=== PATIENT | male | born 1960 | race Caucasian/White ===

== ENCOUNTER 2021-01-19 10:15 | Outpatient (REF) | payer OTHER, SELFPAY ==
[2021-01-19 11:02] LABS: Alanine Aminotransferase 21 U/L (0-40); Albumin Level 4.4 g/dL (3.5-5.0); Alkaline Phosphatase 100 U/L (39-117); Aspartate Amino Transferase 19 U/L (5-37); Bilirubin Direct 0.3 mg/dL (0.0-0.5); Bilirubin Total 1.1 mg/dL (0.0-1.0); Cholesterol 161 mg/dL; HDL Cholesterol 40 mg/dL; LDL Cholesterol Calculated 92 mg/dl; Total Protein 7.3 g/dL (6.5-8.0); Triglycerides 145 mg/dL
[2021-01-19 12:36] LABS: Reflex LDLD? No
== END 2021-01-19 10:16 | disposition home or self-care (01) ==
LOC: HO.LNP 10:15
PROVIDERS: Visit Provider Internal Medicine
DX: E78.00 Pure hypercholesterolemia, unspecified (principal)
CPT/HCPCS: 80061; 80076

== ENCOUNTER 2021-07-24 13:23 | Outpatient (REF) | payer OTHER, SELFPAY ==
[2021-07-24 13:28] LABS: MANUAL DIFF FLAG NO
[2021-07-24 13:41] LABS: Basophils Percent Auto 0.5 % (0-2); Eosinophils Absolute Auto 0.2 X10*3/uL (0.0-0.4); Eosinophils Percent Auto 2.3 % (0-4); Hematocrit 47.3 % (42.0-52.0); Hemoglobin 15.4 g/dl (14.0-18.0); Imm Gran Abs Auto 0.02 X10*3/uL (0.00-0.03); Imm Gran Pct Auto 0.3 % (0.0-0.4); Lymphocytes Absolute Auto 2.3 X10*3/uL (1.2-4.9); Lymphocytes Percent Auto 29.2 % (20-40); Mean Corpuscular HGB Conc 32.6 g/dl (31.0-36.0); Mean Corpuscular Hemoglobin 30.3 pg (27.0-33.0); Mean Corpuscular Volume 93.1 fL (80.0-98.0); Mean Platelet Volume 10.5 fL (9.4-12.4); Monocytes Absolute Auto 0.8 X10*3/uL (0.1-1.2); Monocytes Percent Auto 10.3 % (2-11); Neutrophils Absolute Auto 4.4 x10*3/uL (2.0-8.3); Neutrophils Percent Auto 57.4 % (45-73); Platelet Count 265 X10*3/uL (160-400); Red Blood Count 5.08 X10*6/uL (4.60-5.80); Red Cell Distribution Width 13.3 % (11.0-16.0); White Blood Count 7.7 X10*3/uL (4.8-10.8)
[2021-07-24 16:54] LABS: Alanine Aminotransferase 21 U/L (0-40); Albumin Level 4.4 g/dL (3.5-5.0); Alkaline Phosphatase 106 U/L (39-117); Anion Gap 9 (12-20); Aspartate Amino Transferase 18 U/L (5-37); Bilirubin Total 1.1 mg/dL (0.0-1.0); Blood Urea Nitrogen 16 mg/dL (9-16); Calcium 9.3 mg/dL (8.4-10.2); Carbon Dioxide 27 mmol/L (22-29); Chloride 107 mmol/L (96-108); Cholesterol 150 mg/dL; Estimated Glomerular Filt Rate > 60; Glucose Fasting 91 mg/dL (60-99); HDL Cholesterol 44 mg/dL; LDL Cholesterol Calculated 85 mg/dl; Sodium 139 mmol/L (135-145); Total Protein 7.1 g/dL (6.5-8.0); Triglycerides 106 mg/dL
[2021-07-24 18:28] LABS: Reflex LDLD? No
== END 2021-07-24 13:24 | disposition home or self-care (01) ==
LOC: HO.LNP 13:23
PROVIDERS: Visit Provider Internal Medicine
DX: Z00.00 Encounter for general adult medical examination without abnormal findings (principal); Z12.5 Encounter for screening for malignant neoplasm of prostate; R09.89 Other specified symptoms and signs involving the circulatory and respiratory systems; E78.00 Pure hypercholesterolemia, unspecified
CPT/HCPCS: 80053; 80061; 84153; 85025

== ENCOUNTER 2021-07-28 14:10 | Outpatient (REF) | payer OTHER, SELFPAY ==
[2021-07-28 14:22] LABS: Appearance Urine CLEAR; Color Urine YELLOW; Glucose Urine UA NEG (NEG); Leukocyte Esterase Urine NEG (NEG); Nitrite Urine NEG (NEG); Specific Gravity - Urine 1.025 (1.005-1.025); Urine Blood NEG (NEG); Urine Ketones NEG (NEG); Urine Protein NEG (NEG-TRACE)
== END 2021-07-28 14:11 | disposition home or self-care (01) ==
LOC: HO.LNP 14:10
PROVIDERS: Visit Provider Internal Medicine
DX: Z00.00 Encounter for general adult medical examination without abnormal findings (principal); E78.00 Pure hypercholesterolemia, unspecified
CPT/HCPCS: 81003

== ENCOUNTER 2022-01-15 10:48 | Outpatient (REF) | payer OTHER, SELFPAY ==
[2022-01-15 11:23] LABS: Alanine Aminotransferase 20 U/L (0-40); Albumin Level 4.2 g/dL (3.5-5.0); Alkaline Phosphatase 98 U/L (39-117); Aspartate Amino Transferase 18 U/L (5-37); Bilirubin Direct 0.5 mg/dL (0.0-0.5); Bilirubin Total 1.1 mg/dL (0.0-1.0); Cholesterol 145 mg/dL; HDL Cholesterol 41 mg/dL; LDL Cholesterol Calculated 83 mg/dl; Triglycerides 105 mg/dL
[2022-01-15 12:40] LABS: Reflex LDLD? No
== END 2022-01-15 10:49 | disposition home or self-care (01) ==
LOC: HO.LNP 10:48
PROVIDERS: Visit Provider Internal Medicine
DX: E78.00 Pure hypercholesterolemia, unspecified (principal)
CPT/HCPCS: 80061; 80076

== ENCOUNTER 2022-07-29 10:38 | Outpatient (REF) | payer OTHER, SELFPAY ==
[2022-07-29 10:42] LABS: MANUAL DIFF FLAG NO
[2022-07-29 11:06] LABS: Basophils Percent Auto 0.5 % (0-2); Eosinophils Absolute Auto 0.2 X10*3/uL (0.0-0.4); Eosinophils Percent Auto 3.2 % (0-4); Hematocrit 50.8 % (42.0-52.0); Hemoglobin 16.4 g/dl (14.0-18.0); Imm Gran Abs Auto 0.03 X10*3/uL (0.00-0.03); Imm Gran Pct Auto 0.4 % (0.0-0.4); Lymphocytes Absolute Auto 2.4 X10*3/uL (1.2-4.9); Mean Corpuscular HGB Conc 32.3 g/dl (31.0-36.0); Mean Corpuscular Hemoglobin 30.1 pg (27.0-33.0); Mean Corpuscular Volume 93.2 fL (80.0-98.0); Mean Platelet Volume 10.1 fL (9.4-12.4); Monocytes Absolute Auto 0.7 X10*3/uL (0.1-1.2); Monocytes Percent Auto 9.4 % (2-11); Neutrophils Percent Auto 54.5 % (45-73); Platelet Count 240 X10*3/uL (160-400); Red Blood Count 5.45 X10*6/uL (4.60-5.80); Red Cell Distribution Width 13.4 % (11.0-16.0); White Blood Count 7.4 X10*3/uL (4.8-10.8)
[2022-07-29 11:14] LABS: Appearance Urine Clear; Color Urine Yellow; Glucose Urine UA Negative (Negative); Leukocyte Esterase Urine Negative (Negative); Nitrite Urine Negative (Negative); Urine Blood Negative (Negative); Urine Ketones Negative (Negative); Urine Protein Negative (Neg-Trace)
[2022-07-29 11:20] LABS: Bacteria Urine None Seen (None Seen); Hyaline Casts Urine 0-2 /LPF (0-2); RBC Urine 0-2 /HPF (0-2); Squamous Epithelial Cell Urine 0-2 /HPF (0-2); WBC Urine 0-5 /HPF (0-5)
[2022-07-29 11:23] LABS: Alanine Aminotransferase 22 U/L (0-40); Albumin Level 4.5 g/dL (3.5-5.0); Alkaline Phosphatase 103 U/L (39-117); Anion Gap 14 (12-20); Aspartate Amino Transferase 19 U/L (5-37); Bilirubin Total 0.9 mg/dL (0.0-1.0); Blood Urea Nitrogen 20 mg/dL (9-16); Calcium 9.5 mg/dL (8.4-10.2); Carbon Dioxide 26 mmol/L (22-29); Chloride 104 mmol/L (96-108); Cholesterol 190 mg/dL; Estimated Glomerular Filt Rate > 60; Glucose Random 98 mg/dL (60-115); HDL Cholesterol 45 mg/dL; LDL Cholesterol Calculated 103 mg/dl; Potassium 4.6 mmol/L (3.3-5.1); Sodium 139 mmol/L (135-145); Total Protein 7.6 g/dL (6.5-8.0); Triglycerides 210 mg/dL
[2022-07-29 11:33] LABS: PSA,Total (Free>4and<10) 0.69 ng/mL (0.00-4.00)
== END 2022-07-29 10:39 | disposition home or self-care (01) ==
LOC: HO.LNP 10:38
PROVIDERS: Visit Provider Internal Medicine
DX: Z00.00 Encounter for general adult medical examination without abnormal findings (principal); Z12.5 Encounter for screening for malignant neoplasm of prostate; E78.00 Pure hypercholesterolemia, unspecified
CPT/HCPCS: 80053; 80061; 81001; 84153; 85025

== ENCOUNTER 2023-01-31 11:05 | Outpatient (REF) | payer OTHER, SELFPAY ==
[2023-01-31 12:10] LABS: Alanine Aminotransferase 25 U/L (0-40); Albumin Level 4.3 g/dL (3.5-5.0); Alkaline Phosphatase 93 U/L (39-117); Aspartate Amino Transferase 20 U/L (5-37); Bilirubin Direct 0.4 mg/dL (0.0-0.5); Bilirubin Total 1.4 mg/dL (0.0-1.0); Cholesterol 153 mg/dL; HDL Cholesterol 42 mg/dL; LDL Cholesterol Calculated 88 mg/dl; Total Protein 6.9 g/dL (6.5-8.0); Triglycerides 119 mg/dL
[2023-01-31 13:35] LABS: Reflex LDLD? No
== END 2023-01-31 11:06 | disposition home or self-care (01) ==
LOC: HO.LNP 11:05
PROVIDERS: Visit Provider Internal Medicine
DX: E78.00 Pure hypercholesterolemia, unspecified (principal)
CPT/HCPCS: 80061; 80076

== ENCOUNTER 2023-08-02 10:43 | Outpatient (REF) | payer OTHER, SELFPAY ==
[2023-08-02 10:47] LABS: MANUAL DIFF FLAG NO
[2023-08-02 11:11] LABS: Appearance Urine Clear; Color Urine Yellow; Glucose Urine UA Negative (Negative); Leukocyte Esterase Urine Negative (Negative); Nitrite Urine Negative (Negative); Urine Blood Negative (Negative); Urine Ketones Negative (Negative); Urine Protein Negative (Neg-Trace)
[2023-08-02 11:12] LABS: Basophils Absolute Auto 0.1 X10*3/uL (0.0-0.2); Basophils Percent Auto 0.7 % (0-2); Eosinophils Absolute Auto 0.3 X10*3/uL (0.0-0.4); Eosinophils Percent Auto 3.8 % (0-4); Hematocrit 48.6 % (42.0-52.0); Hemoglobin 15.8 g/dl (14.0-18.0); Imm Gran Abs Auto 0.03 X10*3/uL (0.00-0.03); Imm Gran Pct Auto 0.4 % (0.0-0.4); Lymphocytes Absolute Auto 2.2 X10*3/uL (1.2-4.9); Lymphocytes Percent Auto 30.5 % (20-40); Mean Corpuscular HGB Conc 32.5 g/dl (31.0-36.0); Mean Corpuscular Hemoglobin 30.3 pg (27.0-33.0); Mean Corpuscular Volume 93.3 fL (80.0-98.0); Mean Platelet Volume 10.3 fL (9.4-12.4); Monocytes Absolute Auto 0.8 X10*3/uL (0.1-1.2); Monocytes Percent Auto 11.7 % (2-11); Neutrophils Absolute Auto 3.8 x10*3/uL (2.0-8.3); Neutrophils Percent Auto 52.9 % (45-73); Platelet Count 230 X10*3/uL (160-400); Red Blood Count 5.21 X10*6/uL (4.60-5.80); Red Cell Distribution Width 13.5 % (11.0-16.0); White Blood Count 7.1 X10*3/uL (4.8-10.8)
[2023-08-02 11:18] LABS: Bacteria Urine None Seen (None Seen); Hyaline Casts Urine 0-2 /LPF (0-2); RBC Urine 0-2 /HPF (0-2); Squamous Epithelial Cell Urine 0-2 /HPF (0-2); WBC Urine 0-5 /HPF (0-5)
[2023-08-02 11:28] LABS: Alanine Aminotransferase 23 U/L (0-40); Albumin Level 4.3 g/dL (3.5-5.0); Alkaline Phosphatase 85 U/L (39-117); Anion Gap 11 (12-20); Aspartate Amino Transferase 22 U/L (5-37); Bilirubin Total 1.2 mg/dL (0.0-1.0); Blood Urea Nitrogen 22 mg/dL (9-16); Calcium 9.6 mg/dL (8.4-10.2); Carbon Dioxide 28 mmol/L (22-29); Chloride 104 mmol/L (96-108); Cholesterol 160 mg/dL (<200); Estimated Glomerular Filt Rate > 60; Glucose Random 96 mg/dL (60-115); HDL Cholesterol 41 mg/dL (>40); LDL Cholesterol Calculated 95 mg/dL (<100); Sodium 139 mmol/L (135-145); Total Protein 7.4 g/dL (6.5-8.0); Triglycerides 122 mg/dL (<150)
[2023-08-02 11:41] LABS: PSA,Total (Free>4and<10) 1.36 ng/mL (0.00-4.00)
== END 2023-08-02 10:44 | disposition home or self-care (01) ==
LOC: HO.LNP 10:43
PROVIDERS: Visit Provider Internal Medicine
DX: Z00.00 Encounter for general adult medical examination without abnormal findings (principal); Z12.5 Encounter for screening for malignant neoplasm of prostate; E78.00 Pure hypercholesterolemia, unspecified
CPT/HCPCS: 80053; 80061; 81001; 84153; 85025

== ENCOUNTER 2024-08-02 07:30 | Outpatient (REF) | payer OTHER, SELFPAY ==
[2024-08-02 07:42] LABS: MANUAL DIFF FLAG NO
[2024-08-02 08:08] LABS: Appearance Urine Clear; Color Urine Yellow; Glucose Urine UA Negative (Negative); Leukocyte Esterase Urine Negative (Negative); Nitrite Urine Negative (Negative); PH 6.5 (5.0-9.0); Specific Gravity - Urine <= 1.005 (1.005-1.025); Urine Blood Negative (Negative); Urine Ketones Negative (Negative); Urine Protein Negative (Neg-Trace)
[2024-08-02 08:15] LABS: Bacteria Urine None Seen (None Seen); Hyaline Casts Urine 0-2 /LPF (0-2); RBC Urine 0-2 /HPF (0-2); Squamous Epithelial Cell Urine 0-2 /HPF (0-2); WBC Urine 0-5 /HPF (0-5)
[2024-08-02 08:20] LABS: Basophils Absolute Auto 0.1 X10*3/uL (0.0-0.2); Basophils Percent Auto 0.7 % (0-2); Eosinophils Absolute Auto 0.3 X10*3/uL (0.0-0.4); Eosinophils Percent Auto 3.9 % (0-4); Hematocrit 47.9 % (42.0-52.0); Hemoglobin 16.1 g/dl (14.0-18.0); Imm Gran Abs Auto 0.02 X10*3/uL (0.00-0.03); Imm Gran Pct Auto 0.3 % (0.0-0.4); Lymphocytes Absolute Auto 1.9 X10*3/uL (1.2-4.9); Lymphocytes Percent Auto 26.6 % (20-40); Mean Corpuscular HGB Conc 33.6 g/dl (31.0-36.0); Mean Corpuscular Hemoglobin 30.5 pg (27.0-33.0); Mean Corpuscular Volume 90.7 fL (80.0-98.0); Mean Platelet Volume 10.3 fL (9.4-12.4); Monocytes Absolute Auto 0.8 X10*3/uL (0.1-1.2); Monocytes Percent Auto 11.1 % (2-11); Neutrophils Absolute Auto 4.1 x10*3/uL (2.0-8.3); Neutrophils Percent Auto 57.4 % (45-73); Platelet Count 208 X10*3/uL (160-400); Red Blood Count 5.28 X10*6/uL (4.60-5.80); Red Cell Distribution Width 13.5 % (11.0-16.0); White Blood Count 7.2 X10*3/uL (4.8-10.8)
[2024-08-02 08:44] LABS: Alanine Aminotransferase 30 U/L (0-40); Albumin Level 4.2 g/dL (3.5-5.0); Alkaline Phosphatase 97 U/L (39-117); Anion Gap 12 (12-20); Aspartate Amino Transferase 30 U/L (5-37); Bilirubin Total 1.1 mg/dL (0.0-1.0); Blood Urea Nitrogen 19 mg/dL (9-16); Calcium 9.9 mg/dL (8.4-10.2); Carbon Dioxide 24 mmol/L (22-29); Chloride 106 mmol/L (96-108); Cholesterol 146 mg/dL (<200); Estimated Glomerular Filt Rate > 60; Glucose Fasting 102 mg/dL (60-99); HDL Cholesterol 39 mg/dL (>40); LDL Cholesterol Calculated 77 mg/dL (<100); Potassium 3.8 mmol/L (3.3-5.1); Sodium 138 mmol/L (135-145); Total Protein 7.2 g/dL (6.5-8.0); Triglycerides 152 mg/dL (<150)
[2024-08-02 09:26] LABS: PSA,Total (Free>4and<10) 0.91 ng/mL (0.00-4.00)
== END 2024-08-02 07:31 | disposition home or self-care (01) ==
LOC: HO.LAB 07:30
PROVIDERS: PCP Internal Medicine; Visit Provider Internal Medicine
DX: Z00.00 Encounter for general adult medical examination without abnormal findings (principal); E78.00 Pure hypercholesterolemia, unspecified
CPT/HCPCS: 36415; 80053; 80061; 81001; 84153; 85025

== ENCOUNTER 2025-02-11 10:14 | Outpatient (REF) | payer OTHER, SELFPAY ==
[2025-02-11 11:02] LABS: Alanine Aminotransferase 32 U/L (0-40); Albumin Level 4.3 g/dL (3.5-5.0); Alkaline Phosphatase 103 U/L (39-117); Aspartate Amino Transferase 32 U/L (5-37); Bilirubin Direct 0.2 mg/dL (0.0-0.5); Bilirubin Total 0.7 mg/dL (0.0-1.0); Cholesterol 149 mg/dL (<200); HDL Cholesterol 38 mg/dL (>40); LDL Cholesterol Calculated 79 mg/dL (<100); Total Protein 7.2 g/dL (6.5-8.0); Triglycerides 162 mg/dL (<150)
--- OUTSIDE RECORDS SUMMARY | 2025-02-11 11:09 | XMS_ITS ---
Author Organization Carlitos Robledo MD Address [address] [place] [phone] Care Team Providers Care Bread Jockey Name Role Phone Carlitos Robledo Primary Care Provider [phone] REASON FOR VISIT fasty lipids Encounters Encounter Location Date Provider Diagnosis Carlitos Robledo MD [address] [place] [address] Drive [address] [place] [phone] 02/11/2025 Carlitos Robledo Pure hypercholestero lemia E78.00 Assessments Encounter Date Diagnosis (ICD Code) Assessment Notes Treatment Notes Treatment Clinical Notes Section Notes 02/11/2025 Pure hypercholesterolemia (ICD-10 - E78.00) Plan Of Treatment Pending Test Test Name Order Date Liver Panel 02/11/2025 Lipid Panel with Reflex 02/11/2025 Next Appt Details Provider Name:Carlitos tinsley, 02/18/2025 09:15:00 AM, [address] [place] [address], [address], [phone], Provider Name:Carlitos tinsley, 08/15/2025 07:00:00 AM, [address] [place] [address], [address], [phone], Provider Name:Carlitos tinsley, 08/22/2025 11:00:00 AM, [address] [place] [address], [address], [phone], Progress Notes * MARIA DE JESUS NOVOADOB:1960 ( 64 yo M)Acc No.[id number]:02/11/2025 Progress Note Patient:?MARIA DE JESUS NOVOA Provider:?Carlitos Robledo MD :1960???Age:64 Y???Sex:Male Feliciano e:02/11/2025 Address:[address], [place], [phone] Subjective: * Chief Complaints: * ???1. Fasty lipids. * Medical History:? Objective: * Vitals:? Assessment: * Assessment: 1.?Pure hypercholesterolemia - E78.00 (Primary)??? Plan: * Treatment: * Procedure Codes:?38014 VENIP UNCT, ROUTINE* * * The named appointment provid er may or may not be the originator of this progress note, and it is not deemed complete until electronically signed by the appointment provider. Sign off status: Pending * Provider:?Carlitos Robledo MD Date:?0 02/11/2025 Generated for Anabelle pandya/Rosalio/Bereitting on:?02/11/2025 11:08 AM EDT
[2025-02-11 11:25] LABS: Reflex LDLD? No
== END 2025-02-11 10:15 | disposition home or self-care (01) ==
LOC: HO.LNP 10:14
PROVIDERS: Visit Provider Internal Medicine
DX: E78.00 Pure hypercholesterolemia, unspecified (principal)
CPT/HCPCS: 80061; 80076

== ENCOUNTER 2025-04-04 12:05 | Day surgery (SDC) | payer OTHER, SELFPAY ==
--- OUTSIDE RECORDS SUMMARY | 2025-02-18 05:15 | XMS_ITS ---
Author Organization Carlitos Robledo MD Address [address] [place], [place] [id number] Care Team Providers Care Clinical Nurse Occupational Medicine Name Role Phone Carlitos Robledo Primary Care Provider [phone] Allergies No Known Allergies Reason For Referral [...] Location Date Provider Diagnosis Carlitos Robledo MD [address] [place] [address] [place] [phone] 02/18/2025 Carlitos Glennangie Tick bite W57.XXXA ; Pure hypercholesterolemia E78.00 [...] Nath Next Appt Details Provider Name:Carlitos tinsley, 08/15/2025 07:00:00 AM, [address] [place] [address], [address], [phone], Provider Name:Carlitos tinsley, 08/22/2025 11:00:00 AM, [address] [place] [address], Suite [facility], [place], [place], [phone], Progress Notes * MARIA DE JESUS NOVOADOB:1960 ( 64 yo M)Acc No.[id number]:02/18/2025 Progress Notes Patient: MARIA DE JESUS THOMPSON Provider: Radha Robledo MD :1960 A ge:64 Y S ex:Male Date:02/18/2025 Address:[address], [place], [id number] Subjective: * Chief Complaints: * 6 monthPatient [...] MD Date: 0 02/18/2025 Generated for Anabelle pandya/Rosalio/eTransmitting on: 04/04/2025 12:40 PM EDT History and Physical Notes * HPI (History [...] Provider Referred Provider Not es 02/18/2025 Carlitos Robledo Robert needs urge nt Colonoscopy
[2025-04-02 09:58] VITALS: BMI 40.3
[2025-04-04 12:22] VITALS: BMI 41.3
[2025-04-04 12:33] VITALS: BP 149/77; PULSE 77; RESP 16; TEMP 36.5; O2SAT 95
--- OUTSIDE RECORDS SUMMARY | 2025-04-04 12:40 | XMS_ITS | Patient Health Record ---
Author Organization [facility] Address [address] [place] [address] Care Team Providers Care Straightener And Aligner Name Role Phone Carlitos Robledo MD Primary Care Provider Rohan Rosenberg Unavailable [phone] Allergies No Known Allergies Reason For Referral No Information Medications Medication SIG (Take, Route, Frequency, Duration) Notes Start Date End Date Status Atorvastatin Calcium 40 MG 1 tablet Oral ly Once a day Active Immunizations Vaccine Route Administration Date Status Comme nts Influenza Unknown 07/03/2024 Administered Problems Problem Type SNOMED Code ICD Code Onset Dates Problem Status W/U Status Risk Notes Problem Colon cancer screening (V76.51) Active confirmed Vital Signs Temperature 98.4 degrees Fahrenheit 02/20/2025 Blood pressure diastolic 01 mm Hg 02/20/2025 Height 69.5 in 02/20/2025 Blood pressure systolic 001 mm Hg 02/20/2025 Weight 277.1 lbs 02/20/2025 BMI 40.33 kg/m2 02/20/2025 Procedures Procedure Date Ordered Date Performed Result Body Sit e COLONOSCOPY 02/20/2025 N/A Encounters Encounter Location Date Provider Diagnosis [facility] [address] [place] [id number] 02/20/2025 Rohan Ambriz Heme + stool R19.5 Assessments Encounter Date Diagnosis (ICD Code) Assessment Notes Treatment Notes Treatment Clinical Notes Section Notes 02/20/2025 Heme + stool (ICD-10 - R19.5) Overall, Og appears quite well from a GI standpoint and is not having any new or worrisome GI complaints. However, given the reported heme positive stool and his last colonoscopy being in 2017, I did recommend a colonoscopy for further evaluation to rule out polyps or any other lesions. We did review the rationale for this in regard to colorectal cancer prevention and/or early detection. Full consent has been obtained from him for this, including risks of bleeding and perforation. The procedure will be done with monitored anesthesia care. I advised him that as long as he is not having any significant upper GI complaints then I do not think an upper endoscopy is required despite his family history in his brother. Og was comfortable with this plan. Thank you again for allowing me to participate in Og's care. I shall continue to keep you advised of his progress. Plan Of Treatment Pending Test Test Name Order Date COLONOSCOPY 02/20/2025 Future Test Test Name Order Date COLONOSCOPY 10/13/2012 Next Appt Details Provider Name:Rohan Ambriz , 04/04/2025 01:00:00 PM, [address] [place] [address] , [place], [place], [phone], Insurance Providers Payer Name Payer Address Payer Phone Subscriber Number Group Number Insured Name Patient Relationship to Insured Coverage Start Date Coverage End Date [employer] [address] [place] [address] [id number] OG NOVOA Self - patient is the insured Medical (General) History Medical History History ICD Code Denies NV,DM,CVA,Lung disease,renal dise ase Hyperlipidemia Negative screening colonoscopy with i n 2012 Negative colonoscopy at [facility] in 2017. This was done for the evaluation of an abnormal CT scan of the colon.
[2025-04-04] MEDS: Lactated Ringers 1,000 ML 100 ML IVCONT (12:41)
--- NOTE | 2025-04-04 13:00 | HO.ANESPROP2 ---
[facility] Past Medical History Medical History Sleep apnea treated with continuous positive airway pressure (CPAP) Hyperlipidemia Functional capacity: independent ambulation Family History Family history of problems with anesthesia: No Surgical History Surgical History H/O colonoscopy History of Problems with Anesthesia: No Social History Social History Patient Tobacco Use Status: Never used Tobacco Use of substances other than those prescribed or required for medical reasons: No Are you DNR?: No Advance Directives: No Advance Directives Information Provided: Yes Poor oral hygiene: No Meds Allergies Allergy/AdvReac Type Severity Reaction Status Date / Time No Known Allergies Allergy Verified 04/04/25 12:21 Active Medications: Current Medications Lactated Ringer's (Lr) 1,000 mls @ 100 mls/hr IVCONT .Q10H RAINER Last Admin: 04/04/25 12:41 Dose: 100 mls/hr Sodium Biphosphate/Sodium Phosphate (Sodium Phosphate,[place]-Dibasic 133 Ml Enema) 133 ml FL ONCE PRN PRN Reason: Poor Colonoscopy Prep Results Home Medications ?Medication ?Instructions ?Recorded ?Confirmed ?Last Taken ?Type atorvastatin 40 mg tablet 40 mg PO DAILY 04/02/25 04/02/25 Unknown History Exam Height,Weight and Vital Signs: Height 5 ft 9.5 in Weight 128.6 kg Last Vital Signs Temp 97.7 F 04/04/25 12:33 Pulse 77 04/04/25 12:33 Resp 16 04/04/25 12:33 BP 149/77 H 04/04/25 12:33 Pulse Ox 95 04/04/25 12:33 O2 Del Method Room Air 04/04/25 12:33 Airway Mallampati Class: III TM Dist: >3cm Neck ROM: Full Heart: RRR Lungs: CTS Assessment and Plan Assessment Anesthesia Assessment: Anesthesia Plan Discussed and Chart Reviewed Final Anesthetic Review Family History of Problems with Anesthesia: No History of Problems with Anesthesia: No NPO: Yes Final Preanesthetic Review: Meds/Allgs Chart Reviewed, Consent Obtained/Reviewed and Anes Risks/Benef Reviewed Procedure Risk: Low Anesthetic Plan Anesthetic Plan: MAC: Disposition: Standard PACU
--- NOTE | 2025-04-04 14:29 | P.BOP_ITS ---
Brief Operative Note Date of Service: 04/04/25 Pre-op diagnosis: Screening Post-op diagnosis: other (Colon polyp) Procedure: Colonoscopy to the cecum with cold snare polypectomy x 1 Surgeon: Rohan Ambriz MD Anesthesia: MAC Was an Five Roll Refiner Batch Mixer used for this Procedure?: No Estimated blood loss (mL): 2.0 Pathology: other (A. Cecal polyp) Condition: stable Disposition: PACU
[2025-04-04 14:35] VITALS: BP 112/68; PULSE 69; RESP 14; TEMP 36.3; O2SAT 96
[2025-04-04 14:40] VITALS: BP 115/69; PULSE 72; RESP 14; O2SAT 96
[2025-04-04 14:45] VITALS: BP 116/79; PULSE 72; RESP 16; O2SAT 93
[2025-04-04 14:50] VITALS: BP 111/65; PULSE 70; RESP 16; O2SAT 94
[2025-04-04 15:01] VITALS: BP 129/76; PULSE 73; RESP 20; TEMP 36.6; O2SAT 94
--- NOTE | 2025-04-04 15:29 | HO.POSTANES ---
Post Anesthesia Evaluation Post Anesthesia Evaluation Date of Service: 04/04/25 Vital Signs: Vital Signs Temp Pulse Resp BP Pulse Ox O2 Del Method O2 Flow Rate 04/04/25 15:01 97.8 F 73 20 129/76 94 Room Air 04/04/25 14:50 70 16 111/65 94 Room Air 04/04/25 14:45 72 16 116/79 93 Room Air 04/04/25 14:40 72 14 115/69 96 Room Air 04/04/25 14:35 97.4 F 69 14 112/68 96 Simple Mask 6 04/04/25 12:33 97.7 F 77 16 149/77 H 95 Room Air Anesthesia: Monitored Mental Status: Awake Pain Control: Satisfactory Nausea/Vomiting: None Hydration: Adequate Anesthesia-Related Issues: No Anes. Related Issues
--- NOTE | 2025-04-05 00:59 | OP_ITS ---
DATE OF SERVICE: 04/04/2025 SURGEON: Rohan Ambriz MD INDICATIONS: Patient presents for evaluation of heme-positive stool. Full consent obtained from him for this, including risks of bleeding and perforation. PREOPERATIVE DIAGNOSIS: Heme-positive stool. POSTOPERATIVE DIAGNOSIS: PROCEDURE PERFORMED: Colonoscopy to the cecum with cold snare polypectomy x1. ESTIMATED BLOOD LOSS: COMPLICATIONS: ANESTHESIA: Monitored anesthesia care. ASSISTANTS: SPECIMENS: POSTOPERATIVE DIAGNOSES: Heme-positive stool, small colon polyp, diverticulosis, and internal hemorrhoids. DESCRIPTION OF PROCEDURE: The patient was placed in the left lateral decubitus position. The digital rectal exam revealed some external hemorrhoids. The Olympus video pediatric colonoscope was entered into the rectum and advanced to the cecum with the assistance of abdominal wall pressure. Once in the cecum, I did identify normal-appearing cecal pouch other than an approximately 8 mm flat, but raised polyp, which was removed with cold snare polypectomy. The polypectomy site appeared clean, without any sign of residual polyp nor significant bleeding. The polyp was recovered by suction. The remainder of the cecum appeared completely normal including the appendiceal orifice. The ileocecal valve appeared normal. The scope was slowly withdrawn assessing all mucosal surfaces carefully. Preparation was excellent. I did not visualize any sign of other polyps, colitis, nor angiodysplasia. There was moderate amount of sigmoid diverticulosis. In the rectum, scope was retroflexed visualizing internal hemorrhoids, but no other pathology. The rectal mucosa appeared normal. Scope was straightened and withdrawn from the patient. He was returned to the recovery area in stable condition. IMPRESSION: 1. Colon polyp. 2. Diverticulosis. 3. Internal hemorrhoids. PLAN: The results of the pathology will be checked. If this is a tubular adenoma or a serrated polyp, I would recommend a repeat colonoscopy in 5 years. If it is only hyperplastic, I would recommend a followup coloscopy in 10 years for further screening given no reported family history of colorectal cancer. He was advised not to use any aspirin or NSAIDs for 1 week. MD GHANSHYAM Joyce/JENNIFER / [id number] MTDD
== END 2025-04-04 15:13 | disposition home or self-care (01) ==
PROVIDERS: PCP Internal Medicine; Visit Provider Internal Medicine
PROC: 0DJD8ZZ Inspection of Lower Intestinal Tract, Via Natural or Artificial Opening Endoscopic (ICD-10-PCS; CPT 45378; principal; 2025-04-04 13:00)
DX: R19.5 Other fecal abnormalities (principal); D12.0 Benign neoplasm of cecum; K57.30 Diverticulosis of large intestine without perforation or abscess without bleeding; K64.8 Other hemorrhoids; Z80.0 Family history of malignant neoplasm of digestive organs; E78.5 Hyperlipidemia, unspecified; Z79.899 Other long term (current) drug therapy
CPT/HCPCS: 45385; 88305; J2003; J2704

== ENCOUNTER 2025-06-10 15:46 | Outpatient (REF) | payer OTHER, SELFPAY ==
[2025-06-15 19:03] LABS: Testosterone, Free 32.1 pg/mL (35.0-155.0)
== END 2025-06-10 15:47 | disposition home or self-care (01) ==
LOC: HO.LNP 15:46
PROVIDERS: Visit Provider Internal Medicine
DX: Z23 Encounter for immunization (principal); E66.9 Obesity, unspecified; E78.00 Pure hypercholesterolemia, unspecified
CPT/HCPCS: 84402; 84403; 84443

== ENCOUNTER 2025-08-15 11:16 | Outpatient (REF) | payer OTHER, SELFPAY ==
[2025-08-15 11:41] LABS: Appearance Urine Clear; Glucose Urine UA Negative (Negative); Hematocrit 48.6 % (42.0-52.0); Hemoglobin 16.0 g/dl (14.0-18.0); Imm Gran Abs Auto 0.02 X10*3/uL (0.00-0.03); Imm Gran Pct Auto 0.3 % (0.0-0.4); Lymphocytes Absolute Auto 1.9 X10*3/uL (1.2-4.9); MANUAL DIFF FLAG NO; Mean Corpuscular HGB Conc 32.9 g/dl (31.0-36.0); Mean Corpuscular Hemoglobin 30.7 pg (27.0-33.0); Mean Corpuscular Volume 93.3 fL (80.0-98.0); NRBC Abs Auto 0.000 X10*3/uL (0.0-0.012); NRBC Pct Auto 0.0 /100WBC (0.0-0.2); PH 6.5 (5.0-9.0); Platelet Count 232 X10*3/uL (160-400); Red Blood Count 5.21 X10*6/uL (4.60-5.80); Specific Gravity - Urine 1.020 (1.005-1.025); White Blood Count 7.5 X10*3/uL (4.8-10.8)
[2025-08-15 17:20] LABS: Alanine Aminotransferase 27 U/L (0-40); Albumin Level 4.5 g/dL (3.5-5.0); Alkaline Phosphatase 109 U/L (39-117); Anion Gap 14 (12-20); Aspartate Amino Transferase 32 U/L (5-37); Blood Urea Nitrogen 22 mg/dL (9-16); Calcium 9.4 mg/dL (8.4-10.2); Carbon Dioxide 24 mmol/L (22-29); Chloride 108 mmol/L (96-108); Cholesterol 149 mg/dL (<200); Estimated Glomerular Filt Rate > 60; HDL Cholesterol 45 mg/dL (>40); Potassium 4.4 mmol/L (3.3-5.1); Sodium 142 mmol/L (135-145); Total Protein 7.3 g/dL (6.5-8.0); Triglycerides 125 mg/dL (<150)
[2025-08-15 17:40] LABS: PSA,Total (Free>4and<10) 2.08 ng/mL (0.00-4.00)
[2025-08-21 20:38] LABS: Testosterone, Free 52.9 pg/mL (35.0-155.0)
== END 2025-08-15 11:17 | disposition home or self-care (01) ==
LOC: HO.LNP 11:16
PROVIDERS: Visit Provider Internal Medicine
DX: Z00.00 Encounter for general adult medical examination without abnormal findings (principal); E78.00 Pure hypercholesterolemia, unspecified; Z12.5 Encounter for screening for malignant neoplasm of prostate
CPT/HCPCS: 80053; 80061; 81001; 84153; 84402; 84403; 85025

== ENCOUNTER 2025-09-09 15:39 | Outpatient (AMB) | payer OTHER, SELFPAY ==
--- OUTSIDE RECORDS SUMMARY | 2024-08-02 02:30 | XMS_ITS ---
Author Organization Carlitos Robledo MD Address [address] [place], [place] [id number] Care Team Providers Care Morgue Attendant Name Role Phone Carlitos Robledo Primary Care Provider [phone] Results Component Value Reference Range Notes Complete Blood Count Auto Di ff Reviewed date:08/02/2024 05:21:38 PM Interpretation: Performing Lab:[facility], [address] [place] [phone] Notes/Report: White Blood Count 7.2 4.8-10.8 X10*3/uL Red Blood Count 5.28 4.60-5.80 X10*6/uL Hemoglobin 16.1 14.0-18.0 g/dl Hematocrit 47.9 42.0-52.0 % Mean Corpuscular Volume 90.7 80.0-98.0 fL Mean Corpuscular Hemoglobin 30.5 27.0-33.0 pg Mean Corpuscular HGB Conc 33.6 31.0-36.0 g/dl Red Cell Distribution Width 13.5 11.0-16.0 % Platelet Count 208 160-400 X10*3/uL Mean Platelet Volume 10.3 9.4-12.4 fL Neutrophils Percent Auto 57.4 45-73 % Imm Gran Pct Auto 0.3 0.0-0.4 % Lymphocytes Percent Auto 26.6 20-40 % Monocytes Percent Auto 11.1 2-11 % Eosinophils Percent Auto 3.9 0-4 % Basophils Percent Auto 0.7 0-2 % NRBC Pct Auto 0.0 0.0-0.2 /100WBC Neutrophils Absolute Auto 4.1 2.0-8.3 x10*3/u L Imm Gran Abs Auto 0.02 0.00-0.03 X10*3/uL Lymphocytes Absolute Auto 1.9 1.2-4.9 X10*3/u L Monocytes Absolute Auto 0.8 0.1-1.2 X10*3/uL Eosinophils Absolute Auto 0.3 0.0-0.4 X10*3/u L Basophils Absolute Auto 0.1 0.0-0.2 X10*3/uL NRBC Abs Auto 0.000 0.0-0.012 X10*3/uL Comprehensive [place]. Panel Fa st Reviewed date:08/02/2024 05:21:20 PM Interpretation: Performing Lab:[address] [id number] Notes/Report: Sodium 138 135-145 mmol/L Potassium 3.8 3.3-5.1 mmol/L Chloride 106 96-108 mmol/L Carbon Dioxide 24 22-29 mmol/L Anion Gap 12 12-20 Blood Urea Nitrogen 19 9-16 mg/dL Creatinine 0.94 0.5-1.4 mg/dL Estimated Glomerular Filt Rate > 60 Chronic Kidney Disease: Estimated GFR < 60 mL/min/1.73m2 Severe Kidney Disease: Estimated GFR < 15 mL/min/1.73m2 Glucose Fasting 102 60-99 mg/dL A fasting glucose from 100-125 mg/dl is considered impaired (pre-diabetes). Calcium 9.9 8.4-10.2 mg/dL Bilirubin Total 1.1 0.0-1.0 mg/dL Aspartate Amino Transferase 30 5-37 U/L Alanine Aminotransferase 30 0-40 U/L Total Protein 7.2 6.5-8.0 g/dL Albumin Level 4.2 3.5-5.0 g/dL Alkaline Phosphatase 97 39-117 U/L Lipid Panel Reviewed date:08/02/2024 05:18:27 PM Interpretation: Performing Lab:[address] [phone] Notes/Report: Triglycerides 152 <150 mg/dL Desirable Triglyceride: less than 150 mg/dL Borderline High Triglyceride 150-199 mg/dL High Triglyceride: 200-499 mg/dL Very High Triglyceride: greater than or equal to 5OO mg/dL Cholesterol 146 <200 mg/dL Desirable Cholesterol: less than 200 mg/dL Borderline High Cholesterol: 200-239 mg/dL High Cholesterol: greater than 239 mg/dL LDL Cholesterol Calculated 77 <100 mg/dL Desirable LDL: less than 100 mg/dL Near Optimal/Above Optimal LDL: 110-129 mg/dL Borderline High LDL: 130-159 mg/dL High LDL: 160-189 mg/dL Very High LDL: greater than or equal to 190 mg/dL HDL Cholesterol 39 >40 mg/dL Desirable HDL: greater than 40 mg/dL Note: This HDL assay may give artificially low results in patients with liver disease. PSA,Total (Free>4and<10) Reviewed date:08/02/2024 12:53:21 PM Interpretation: Performing Lab:[address] [id number] Notes/Report: PSA,Total (Free>4and<10) 0.91 0.00-4.00 ng/mL A Free PSA was not performed: The percentage of Free PSA can be used to enhance the differentiation of prostate cancer from benign prostatic disease in subjects whose PSA levels are between 4.0 and 10.0 ng/mL. For subjects whose PSA levels are below 4.0 or above 10.0 ng/mL, the risk of prostate cancer is determined on the basis of the PSA alone. Therefore the % Free PSA is recommended only for those subjects whose PSA levels are between 4.0 and 10.0 ng/mL. PSA methodology: [place] Alinity i Chemiluminescent Microparticle Immunoassay (CMIA) UA ClnCatch+Micro w/rflx Cul t Reviewed date:08/02/2024 05:23:08 PM Interpretation: Performing Lab:[address] [phone] Notes/Report: Urine, Clean Catch Color Urine Yellow Appearance Urine Clear PH 6.5 5.0-9.0 Glucose Urine UA Negative Negative mg/dL Urine Blood Negative Negative Specific [place] - Urine <= 1.005 1.005-1.025 Urine Protein Negative Neg-Trace mg/dL Urine Ketones Negative Negative mg/dL Nitrite Urine Negative Negative Leukocyte Esterase Urine Negative Negative RBC Urine 0-2 0-2 /HPF WBC Urine 0-5 0-5 /HPF Squamous Epithelial Cell Urine 0-2 0-2 /HPF Bacteria Urine None Seen None Seen Hyaline Casts Urine 0-2 0-2 /LPF REASON FOR VISIT yearly fasting labs Encounters Encounter Location Date Provider Diagnosis Carlitos Robledo MD [address] [place] [address] [place] [phone] 08/02/2024 Carlitos Robledo Blood tests for rout ine general physical examination Z00.00 and Pure hypercholesterolemia E78.00 Assessments Encounter Date Diagnosis (ICD Code) Assessment Notes Treatment Notes Treatment Clinical Notes Section Notes 08/02/2024 Blood tests for rout ine general physical examination (ICD-10 - Z00.00) 08/02/2024 Pure hypercholesterolemia (ICD-10 - E78.00) Plan Of Treatment Next Appt Details Provider Name:Carlitos tinsley, 02/11/2026 07:15:00 AM, [address] [place] [address], [address], [phone], Provider Name:Carlitos tinsley, 02/18/2026 08:45:00 AM, [address] [place] [address], [address], [phone], Provider Name:Carlitos Wilson ier, 08/19/2026 07:30:00 AM, [address] [place] [address], [address], [phone], Provider Name:Carlitos Wilson ier, 08/26/2026 08:30:00 AM, [address] [place] [address], [address], [phone], Progress Notes * MARIA DE JESUS NOVOADOB:1960 ( 64 yo M)Acc No.[id number]:08/02/2024 Progress Note Patient: MARIA DE JESUS THOMPSON Provider: Radha Robledo MD :1960 A ge:63 Y S ex:Male Date:08/02/2024 Address:[address], [id number] Subjective: * Chief Complaints: * 1 . Yearly fasting labs. * Medical History: Objective: * Vitals: Assessment: * Assessment: 1. B lood tests for routine general physical examination - Z00.00 (Primary) 2 .?Pure hypercholesterolemia - E78.00 Plan: * Treatment: 2. P ure hypercholesterolemia L AB: Complete Blood Count Auto Diff (Collection Date & Time - 08/02/2024 07:41 AM) L AB: Comprehensive [place]. Panel Fast (Collection Date & Time - 08/02/2024 07:41 AM) L AB: Lipid Panel (Collection Date & Time - 08/02/2024 07:41 AM) L AB: PSA,Total (Free>4and<10) (Collection Date & Time - 08/02/2024 07:41 AM) L AB: UA ClnCatch+Micro w/rflx Cult (Collection Date & Time - 08/02/2024 07:37 AM) * * The named appointment provid er may or may not be the originator of this progress note, and it is not deemed complete until electronically signed by the appointment provider. Sign off status: Pending * Provider: Radha Rolbedo MD Date: 1 10/02/2023 Generated for Anabelle pandya/Rosalio/Bereitting on: 05:39 PM EST
--- OUTSIDE RECORDS SUMMARY | 2024-08-16 06:00 | XMS_ITS ---
Author Organization Carlitos Robledo MD Address [address] [place], [place] [id number] Care Team Providers Care Distillery Manager Name Role Phone Carlitos Robledo Primary Care Provider [phone] Allergies No Known Allergies Results Component Value Reference Range Notes Occult Blood, Stool, Guaiac Reviewed date:08/16/2024 02:26:26 PM Interpretation:Positive Performing Lab: Notes/Report: Positive Occult Blood, Stool, Guaiac POS REASON FOR VISIT annual visit Medications Medication SIG (Take, Route, Frequency, Duration) Notes Start Date End Date Status Doxycycline Hyclate 100 MG 1 capsule Orally Twice a day for 2 days 02/08/2023 Not-Taking Tadalafil 20 MG 1/2 tablet Orally On ce a day as needed 07/28/2021 Active Atorvastatin Calcium 40 MG TAKE 1 TABLET BY MOUTH EVERY DAY Active Immunizations Vaccine Route Administration Date Status Comme nts Fluarix Quadrivalent - 150 IM Intramuscular 08/16/2024 Adm inistered Social History Tobacco Use: Social History Observation Description Date Details (start date - stop date) Never Smoker NA - NA Tobacco Use/Smoking Question Answer Notes Patient is a nonsmoker Additional Findings: Tobacco Non-User Cu rrent non-smoker, currently using no form of tobacco Alcohol Screen Question Answer Notes Did you have a drink contain ing alcohol in the past year? Yes How often did you have a dri nk containing alcohol in the past year? Monthly or less (1 point) How many drinks did you have on a typical day when you were drinking in the past year? 1 or 2 drinks (0 point) How often did you have 6 or more drinks on one occasion in the past year? Never (0 point) Points 1 Interpretation Negative Vital Signs Blood pressure systolic 152 mm Hg 08/16/20 24 Blood pressure diastolic 80 mm Hg 024 Height 69 in 08/16/2024 Weight 275 lbs 08/16/2024 BMI 40.61 kg/m2 08/16/2024 Encounters Encounter Location Date Provider Diagnosis Carlitos Robledo MD [address] [place], [place] [id number] 08/16/2024 Carlitos Robledo Painless rectal blee ding K62.5 ; Annual physical exam Z00.00 ; Sleep apnea, unspecified G47.30 ; Encounter for immunization Z23 ; Pure hypercholesterolemia E78.00 ; Colon cancer screening Z12.11 and Depression screening Z13.31 Assessments Encounter Date Diagnosis (ICD Code) Assessment Notes Treatment Notes Treatment Clinical Notes Section Notes 08/16/2024 Painless rectal bleeding (ICD-10 - K62.5) drips in the bowl and wipes sounds hemorrhoidal. will get colonoscopy but is probably hemrrrhoid. [facility] 08/16/2024 Annual physical exam (ICD-10 - Z00.00) labs reviewed and discussed with patient 08/16/2024 Sleep apnea, unspecified (ICD-10 - G47.30) 08/16/2024 Encounter for immunization (ICD-10 - Z23) flu vaccine administered 08/16/2024 Pure hypercholesterolemia (ICD-10 - E78.00) stable, will cntue current regiment 08/16/2024 Colon cancer screeni ng (ICD-10 - Z12.11) guaiac positive 08/16/2024 Depression screening (ICD-10 - Z13.31) negative screen Plan Of Treatment Medication Medication Name Sig Start Date Stop Date Notes Atorvastatin Calcium 40 MG TAKE 1 TABLET BY MOUTH EVERY DAY Treatment Notes Assessment Notes Painless rectal bleeding drips in the bridget wl and wipes sounds hemorrhoidal. will get colonoscopy but is probably hemrrrhoid. [facility] Annual physical exam labs reviewed and d iscussed with patient Encounter for immunization flu vaccine a dministered Pure hypercholesterolemia stable, will c ntue current regiment Colon cancer screening guaiac positive Depression screening negative screen Next Appt Details Follow Up: 6 Months, Reason: Provider Name:Carlitos Wilson ier, 02/11/2026 07:15:00 AM, [address], [address], [place], [place], [phone], Provider Name:Carlitos Wilson ier, 02/18/2026 08:45:00 AM, [address] [facility], [address], [place], [place], [phone], Provider Name:Carlitos Wilson ier, 08/19/2026 07:30:00 AM, [address] [place] [address] Drive, [address], [place], [phone], Provider Name:Carlitos Wilson ier, 08/26/2026 08:30:00 AM, [address] [place] [address], Suite [facility], [place], [phone], Progress Notes * MARIA DE JESUS NOVOADOB:1960 ( 63 yo M)Acc No.[id number]:08/16/2024 Progress Notes Patient: MARIA DE JESUS THOMPSON Provider: Radha Robledo MD :1960 A ge:63 Y S ex:Male Date:08/16/2024 Address:[address] [facility], [id number] Subjective: * Chief Complaints: * A nnual visit * HPI: D epression Screening: PHQ-9 L ittle interest or pleasure in doing things N ot at all, F eeling down, depressed, or hopeless N ot at all, T rouble falling or staying asleep, or sleeping too much N ot at all, F eeling tired or having little energy N ot at all, P oor appetite or overeating N ot at all, F eeling bad about yourself or that you are a failure, or have let yourself or your family down N ot at all, T rouble concentrating on things, such as reading the newspaper or watching television N ot at all, M oving or speaking so slowly that other people could have noticed; or the opposite, being so fidgety or restless that you have been moving around a lot more than usual N ot at all, T houghts that you would be better off or of hurting yourself in some way N ot at all, T otal Score 0 . I nterpretation and Intervention D epression Screening Findings N egative, F ollow-Up for Depression : review of PHQ-9 found negative result, no follow-up needed. here for follow up. only problem is slow urinary volume at times. F all Risk: History H ave you had any falls with injury in the past year? N o, H ave you had two or more falls in the past year? N o. S ASHLEIGH Questions: SDOH Questions I n the past year have you been worried about losing housing? N o, I n the past year have you or any family members you live with been unable to get any of the following when it was really needed? Check all that apply: N one. C ommunication Needs: Communication Needs D oes the patient have a hearing impairment N o, D oes the patient have a vision impairment? Y es, I f yes, what is the vision impairment? G lasses, D oes the patient have a cognition impairment? N o. * ROS: G eneral/Constitutional: Change in appetite d enies. C hills d enies. F ever d enies. O phthalmologic: Blurred vision d enies. D ischarge d enies. P ain d enies. E NT: Decreased hearing d enies. S ore throat d enies.?Swollen glands d enies. E ndocrine: Cold intolerance d enies. E xcessive thirst d enies. H eat intolerance d enies. W eight loss d enies. R espiratory: Cough d enies. S hortness of breath at rest d enies. S hortness of breath with exertion d enies. W heezing d enies. C ardiovascular: Chest pain at rest d enies. C hest pain with exertion?denies. I rregular heartbeat d enies. S hortness of breath d enies. ? G astrointestinal: Abdominal pain d enies. C hange in bowel habits d enies. D iarrhea d enies. N ausea d enies. R ectal bleeding g ets rectal bleeding drips into bowl and on toilet paper and stops by wiping. V omiting d enies . G enitourinary: Blood in urine d enies. D ifficulty urinating d enies. F requent urination d enies. M usculoskeletal: Painful joints d enies. W eakness d enies. ? S kin: Dry skin d enies. I tching d enies. D enies?Mole(s), changes in moles, new moles or any lesions of concern. D enies P hotosensitivity. R alice d enies. N eurologic: Dizziness d enies. F ainting d enies. H eadache?denies. * Medical History: * Surgical History: * Hospitalization/Major Diagno stic Procedure: * Family History: F ather: 83 yrs. M other: 87 yrs. 1 brother(s) , 1 sister(s) . 1 son(s) , 1 daughter(s) . . Father- MERSA Mother- Lung cancer, Denies mental health/substance abuse family history, Denies mental health/substance abuse family history, No pertinent family medical history. * Social History: T obacco Use: T obacco Use/Smoking P atient is a n onsmoker, A dditional Findings: Tobacco Non-User C urrent non-smoker, currently using no form of tobacco. D rugs/Alcohol: A lcohol Screen D id you have a drink containing alcohol in the past year? Y es, H ow often did you have a drink containing alcohol in the past year? M onthly or less (1 point), H ow many drinks did you have on a typical day when you were drinking in the past year? 1 or 2 drinks (0 point), H ow often did you have 6 or more drinks on one occasion in the past year? N ever (0 point), P oints 1 , I nterpretation N egative. M iscellaneous: C affeine: yes, frequency:, 1-2 cups per day. Children: yes. Community involvements: yes. Exercise: yes, 2-3 times per week walks 30 minutes. Home smoke detector use: yes. Housing: owning. Living with: spouse. Marital status: . Occupation: weeks/months/years, works full-time. Pets: none, dogsx1 horse x2. no Travel outside of the [place]. * Medications: T akingTadalafil 20 MG Tablet 1/2 tablet Orally Once a day as neededAtorvastatin Calcium 40 MG Tablet TAKE 1 TABLET BY MOUTH EVERY DAY Taking Tadalafil 20 MG Tablet 1/2 tablet Orally Once a day as neededTaking Atorvastatin Calcium 40 MG Tablet TAKE 1 TABLET BY MOUTH EVERY DAY Not-Taking/PRNDoxycycline Hyclate 100 MG Capsule 1 capsule Orally Twice a dayMedication List reviewed and reconciled with the patientNot-Taking/PRN Doxycycline Hyclate 100 MG Capsule 1 capsule Orally Twice a dayMedication List reviewed and reconciled with the patient * Allergies: N .K.D.A.yes[Allergies Verified] Objective: * Vitals: H t: 69, Wt:275, BMI:40.61, BP:152/80, Repeat BP:144/82. * P ast Orders: L ab:Lipid Panel (Order Date - 08/02/2024) (Collection Date - 08/02/2024) Value Reference Range Triglycerides 152 H <150 - mg/dL Cholesterol 146 <200 - mg/dL LDL Cholesterol Calculated 77 <100 - mg/dL HDL Cholesterol 39 L >40 - mg/dL L ab:PSA,Total (Free>4and<10) (Order Date - 08/02/2024) (Collection Date - 08/02/2024) Value Reference Range PSA,Total (Free>4and<10) 0.91 0.00-4.00 - ng/ mL L ab:UA ClnCatch+Micro w/rflx Cult (Order Date - 08/02/2024) (Collection Date - 08/02/2024) Value Reference Range Color Urine Yellow - Appearance Urine Clear - PH 6.5 5.0-9.0 - Glucose Urine UA Negative Negative - mg/dL Urine Blood Negative Negative - Specific [place] - Urine <= 1.005 1.005-1.025 - Urine Protein Negative Neg-Trace - mg/dL Urine Ketones Negative Negative - mg/dL Nitrite Urine Negative Negative - Leukocyte Esterase Urine Negative Negative - RBC Urine 0-2 0-2 - /HPF WBC Urine 0-5 0-5 - /HPF Squamous Epithelial Cell Urine 0-2 0-2 - /HP F Bacteria Urine None Seen None Seen - Hyaline Casts Urine 0-2 0-2 - /LPF L ab:Complete Blood Count Auto Diff (Order Date - 08/02/2024) (Collection Date - 08/02/2024) Value Reference Range White Blood Count 7.2 4.8-10.8 - X10*3/uL Red Blood Count 5.28 4.60-5.80 - X10*6/uL Hemoglobin 16.1 14.0-18.0 - g/dl Hematocrit 47.9 42.0-52.0 - % Mean Corpuscular Volume 90.7 80.0-98.0 - fL Mean Corpuscular Hemoglobin 30.5 27.0-33.0 - pg Mean Corpuscular HGB Conc 33.6 31.0-36.0 - g/ dl Red Cell Distribution Width 13.5 11.0-16.0 - % Platelet Count 208 160-400 - X10*3/uL Mean Platelet Volume 10.3 9.4-12.4 - fL Neutrophils Percent Auto 57.4 45-73 - % Imm Gran Pct Auto 0.3 0.0-0.4 - % Lymphocytes Percent Auto 26.6 20-40 - % Monocytes Percent Auto 11.1 H 2-11 - % Eosinophils Percent Auto 3.9 0-4 - % Basophils Percent Auto 0.7 0-2 - % NRBC Pct Auto 0.0 0.0-0.2 - /100WBC Neutrophils Absolute Auto 4.1 2.0-8.3 - x10* 3/uL Imm Gran Abs Auto 0.02 0.00-0.03 - X10*3/uL Lymphocytes Absolute Auto 1.9 1.2-4.9 - X10* 3/uL Monocytes Absolute Auto 0.8 0.1-1.2 - X10*3/ uL Eosinophils Absolute Auto 0.3 0.0-0.4 - X10* 3/uL Basophils Absolute Auto 0.1 0.0-0.2 - X10*3/ uL NRBC Abs Auto 0.000 0.0-0.012 - X10*3/uL L ab:Comprehensive [place]. Panel Fast (Order Date - 08/02/2024) (Collection Date - 08/02/2024) Value Reference Range Sodium 138 135-145 - mmol/L Bilirubin Total 1.1 H 0.0-1.0 - mg/dL Aspartate Amino Transferase 30 5-37 - U/L Alanine Aminotransferase 30 0-40 - U/L Total Protein 7.2 6.5-8.0 - g/dL Albumin Level 4.2 3.5-5.0 - g/dL Alkaline Phosphatase 97 39-117 - U/L Potassium 3.8 3.3-5.1 - mmol/L Chloride 106 96-108 - mmol/L Carbon Dioxide 24 22-29 - mmol/L Anion Gap 12 12-20 - Blood Urea Nitrogen 19 H 9-16 - mg/dL Creatinine 0.94 0.5-1.4 - mg/dL Estimated Glomerular Filt Rate > 60 - Glucose Fasting 102 H 60-99 - mg/dL Calcium 9.9 8.4-10.2 - mg/dL * Examination: G eneral Examination: GENERAL APPEARANCE: w ell developed, well nourished, in no acute distress. HEAD: n ormocephalic, atraumatic. EYES: p upils equal, round, reactive to light and accommodation, sclera non-icteric. EARS: n ormal. ORAL CAVITY: m ucosa moist. THROAT: c lear. NECK/THYROID: n paige supple, full range of motion, no cervical lymphadenopathy, no bruits. SKIN: w arm and dry, no suspicious lesions. HEART: r egular rate and rhythm, S1, S2 normal, no murmurs.? LUNGS: c lear to auscultation bilaterally. ABDOMEN: s oft, nontender, nondistended, bowel sounds present, normal, no organomegaly , no masses palpable. RECTAL EXAM: n ormal tone, no external hemorrhoids, no masses palpable, prostate normal, with blood on finger guiac positive. MALE GENITOURINARY: c ircumcised , no penile lesions or discharge , no testicular mass , testes descended bilaterally. EXTREMITIES: n o clubbing, cyanosis, or edema. NEUROLOGIC: n onfocal, motor strength normal upper and lower extremities, sensory exam intact. Assessment: * Assessment: 1. A nnual physical exam - Z00.00 (Primary) 2 . P ainless rectal bleeding - K62.5 3 . S leep apnea, unspecified - G47.30 4 . E ncounter for immunization - Z23 5 . P ure hypercholesterolemia - E78.00 6 . C olon cancer screening - Z12.11 7 . D epression screening - Z13.31 Plan: * Treatment: 2. P ainless rectal bleeding Notes: drips in the bowl and wipes sounds hemorrhoidal. will get colonoscopy but is probably hemrrrhoid. referral [facility] 3. E nisreen for immunization Notes: flu vaccine administered 4. P ure hypercholesterolemia Continue Atorvastatin Calcium Tablet, 40 MG, TAKE 1 TABLET BY MOUTH EVERY DAY. Notes: stable, will cntue current regiment 5. C olon cancer screening L AB: Occult Blood, Stool, Guaiac P ositive Value Reference Range O ccult Blood, Stool, Guaiac POS Notes: guaiac positive??6.?Depression screening? Notes: negative screen?? * Immunizations: Fluarix Quadrivalent - 150 : 0.5 mL (Dose No:1) (Route: Intramuscular) given by Vanessa Finch on Left Deltoid * Procedure Codes: 9 0656 FLU VACCINE NO PRESERV 3 & >72912 IMMUNIZATION [id number] TEST FOR BLOOD, FECES * Follow Up: 6 Months * * Sign off status: Completed true * Provider: Radha Robledo MD Date: 10/17/2023 Generated for Anabelle pandya/Rosalio/Maria Msmitting on: 05:39 PM EST History and Physical Notes * HPI (History of Present Illness) Category Sub-Category Detail Notes Category Not es Depression Screening PHQ-9 Little inte rest or pleasure in doing things: Not at all here for follow up. only problem is slow urinary volume at times Feeling down, depressed, or hopeless: No t at all Trouble falling or staying asleep, or sl eeping too much: Not at all Feeling tired or having little energy: N ot at all Poor appetite or overeating: Not at all Feeling bad about yourself o r that you are a failure, or have let yourself or your family down: Not at all Trouble concentrating on thi ngs, such as reading the newspaper or watching television: Not at all Moving or speaking so slowly that other people could have noticed; or the opposite, being so fidgety or restless that you have been moving around a lot more than usual: Not at all Thoughts that you would be b ivy off or of hurting yourself in some way: Not at all Total Score: 0 Interpretation and Intervention Depression Dario rodriguez Findings: Negative Follow-Up for Depression: : review of PH Q-9 found negative result, no follow-up needed SDOH Questions SDOH Questions In the past year have you been worried about losing housing?: No In the past year have you or any family members you live with been unable to get any of the following when it was really needed? Check all that apply:: None Fall Risk History Have you had any falls with injury i n the past year?: No Have you had two or more falls in the year?: No Communication Needs Communication Needs Does the patient have a hearing impairment: No Does the patient have a vision impairmen t?: Yes If yes, what is the vision impairment?: Glasses Does the patient have a cognition impair ment?: No Examination Category Sub-Category Detail Notes Category Not es General Examination GENERAL APPEARANCE: well dev eloped, well nourished, in no acute distress HEAD: normocephalic, atrau matic EYES: pupils equal, round, reactive to light and accommodation, sclera non-icteric EARS: normal THROAT: clear NECK/THYROID: neck supple, full ra nge of motion, no cervical lymphadenopathy, no bruits HEART: regular rate and rhy thm, S1, S2 normal, no murmurs LUNGS: clear to auscultatio n bilaterally ABDOMEN: soft, nontender, non distended, bowel sounds present, normal, no organomegaly , no masses palpable NEUROLOGIC: nonfocal, motor stre ngth normal upper and lower extremities, sensory exam intact SKIN: warm and dry, no sally picious lesions EXTREMITIES: no clubbing, cyanosi s, or edema MALE GENITOURINARY: circumcised , no pen ile lesions or discharge , no testicular mass , testes descended bilaterally RECTAL EXAM: normal tone, no exte rnal hemorrhoids, no masses palpable, prostate normal, with blood on finger guiac positive ORAL CAVITY: mucosa moist
--- OUTSIDE RECORDS SUMMARY | 2025-02-11 02:30 | XMS_ITS ---
Author Organization Carlitos Robledo MD Address [address] [place], [place] [phone] Care Team Providers Care Four Slide Machine Setter Name Role Phone Carlitos Robledo Primary Care Provider Results Component Value Reference Range Notes Liver Panel Reviewed date:02/11/2025 11:50:55 AM Interpretation: Performing Lab:[facility], [address] [place] [phone] Notes/Report: Bilirubin Total 0.7 0.0-1.0 mg/dL Bilirubin Direct 0.2 0.0-0.5 mg/dL Aspartate Amino Transferase 32 5-37 U/L Alanine Aminotransferase 32 0-40 U/L Total Protein 7.2 6.5-8.0 g/dL Albumin Level 4.3 3.5-5.0 g/dL Alkaline Phosphatase 103 39-117 U/L Lipid Panel with Reflex Reviewed date:02/11/2025 01:43:52 PM Interpretation: Performing Lab:[facility], [address] [place] [phone] Notes/Report: Triglycerides 162 <150 mg/dL Desirable Triglyceride: less than 150 mg/dL Borderline High Triglyceride 150-199 mg/dL High Triglyceride: 200-499 mg/dL Very High Triglyceride: greater than or equal to 5OO mg/dL Cholesterol 149 <200 mg/dL Desirable Cholesterol: less than 200 mg/dL Borderline High Cholesterol: 200-239 mg/dL High Cholesterol: greater than 239 mg/dL LDL Cholesterol Calculated 79 <100 mg/dL Desirable LDL: less than 100 mg/dL Near Optimal/Above Optimal LDL: 110-129 mg/dL Borderline High LDL: 130-159 mg/dL High LDL: 160-189 mg/dL Very High LDL: greater than or equal to 190 mg/dL HDL Cholesterol 38 >40 mg/dL Desirable HDL: greater than 40 mg/dL Note: This HDL assay may give artificially low results in patients with liver disease. REASON FOR VISIT fasty lipids Encounters Encounter Location Date Provider Diagnosis Carlitos Robledo MD [address] [place] [address] [place] [phone] 02/11/2025 Carlitos Robledo Pure hypercholestero lemia E78.00 Assessments Encounter Date Diagnosis (ICD Code) Assessment Notes Treatment Notes Treatment Clinical Notes Section Notes 02/11/2025 Pure hypercholesterolemia (ICD-10 - E78.00) Plan Of Treatment Next Appt Details Provider Name:Carlitos tinsley, 02/11/2026 07:15:00 AM, [address] [place] [address], [address], [phone], Provider Name:Carlitos tinsley, 02/18/2026 08:45:00 AM, [address] [place] [address], [address], [phone], Provider Name:Carlitso tinsley, 08/19/2026 07:30:00 AM, [address] [place] [address], [address], [phone], Provider Name:Carlitos tinsley, 08/26/2026 08:30:00 AM, [address] [place] [address], [phone], Progress Notes * MARIA DE JESUS NOVOADOB:1960 ( 64 yo M)Acc No.[id number]:02/11/2025 Progress Note Patient: MARIA DE JESUS THOMPSON Provider: Radha Robledo MD :1960 A ge:64 Y S ex:Male Date:02/11/2025 Address:[address] [facility] [place] [phone] Subjective: * Chief Complaints: * 1 . Fasty lipids. * Medical History: Objective: * Vitals: Assessment: * Assessment: 1. P ure hypercholesterolemia - E78.00 (Primary) Plan: * Treatment: * Procedure Codes: 3 6415 VENIPUNCT, ROUTINE* * * The named appointment provid er may or may not be the originator of this progress note, and it is not deemed complete until electronically signed by the appointment provider. Sign off status: Pending * Provider: Radha Robledo MD Date: 0 02/11/2025 Generated for Anabelle pandya/Rosalio/Harmony on: 05:39 PM EST
--- OUTSIDE RECORDS SUMMARY | 2025-02-18 04:15 | XMS_ITS ---
Author Organization Carlitos Robledo MD Address [address] [place], [place] [id number] Care Team Providers Care Door Closer Mechanic Name Role Phone Carlitos Robledo Primary Care Provider [phone] Allergies No Known Allergies Reason For Referral Reason needs urgent Colonos copy Diagnosis 1 Guaiac + stool (R19. 5) Referral Organization Carlitos Robledo MD Referring Provider First Name Carlitos Referring Provider Last Name Meena Referring Provider Speciality Internal M edicine Referred Provider Rohan Nath Referred Provider Specialty Gastroentero logy General Notes Deedee Sanderson 0 02/18/2025 11:21:43 AM referral info faxed, Deedee Sanderson 02/22/2025 07:34:16 AM >patient is aware of Clementine ortiz Patti A 03/22/2025 11:45:09 AM >OFFICE NOTE RECD Referral Priority Routine Referral Appointment Date 02/20/2025 REASON FOR VISIT 6 month, Patient would like a script for Doxycycline Medications Medication SIG (Take, Route, Frequency, Duration) Notes Start Date End Date Status Doxycycline Hyclate 100 MG 1 capsule Orally Twice a day for 2 days 02/08/2023 Not-Taking Doxycycline Hyclate 100 MG 1 capsule Orally twice a day for 1 days 02/18/2025 Active Atorvastatin Calcium 40 MG TAKE 1 TABLET BY MOUTH EVERY DAY Active Tadalafil 20 MG 1/2 tablet Orally On ce a day as needed 07/28/2021 Active Vital Signs Blood pressure systolic 140 mm Hg 02/19/20 25 Blood pressure diastolic 82 mm Hg 025 Height 69 in 02/18/2025 Weight 277 lbs 02/18/2025 BMI 40.9 kg/m2 02/18/2025 weight is juanpablo 2 pounds since 08-16-24 Encounters Encounter Location Date Provider Diagnosis Carlitos Robledo MD [address] [place] [id number] 02/18/2025 Carlitos Robledo Tick bite W57.XXXA ; Pure hypercholesterolemia E78.00 and Guaiac + stool R19.5 Assessments Encounter Date Diagnosis (ICD Code) Assessment Notes Treatment Notes Treatment Clinical Notes Section Notes 02/18/2025 Tick bite (ICD-10 - W57.XXXA) patient verbalized understanding of medication and directions for use 02/18/2025 Pure hypercholesterolemia (ICD-10 - E78.00) doing well, will continue current regiment 02/18/2025 Guaiac + stool (ICD- 10 - R19.5) get urgent colonoscopy with dr nath Plan Of Treatment Medication Medication Name Sig Start Date Stop Date Notes Doxycycline Hyclate 100 MG 1 capsule Ora lly twice a day for 1 days 02/18/2025 Treatment Notes Assessment Notes Tick bite patient verbalized u nderstanding of medication and directions for use Pure hypercholesterolemia doing well, wi ll continue current regiment Guaiac + stool get urgent colonosco py with dr nath Referrals Referral Date Details 02/18/2025 02/18/2025, needs tatyana bradley Colonoscopy, Rohan Nath Next Appt Details Provider Name:Carlitos tinsley, 02/11/2026 07:15:00 AM, [address] [place] [address], [place] [address], [place], [place], [phone], Provider Name:Carlitos tinsley, 02/18/2026 08:45:00 AM, [address] [place] [address], [address], [phone], Provider Name:Carlitos tinsley, 08/19/2026 07:30:00 AM, [address] [place] [address], [address], [phone], Provider Name:Carlitos tinsley, 08/26/2026 08:30:00 AM, [address] [place] [address], [address], [phone], Progress Notes * NOVOA, KURTDOB:1960 ( 64 yo M)Acc No.[id number]:02/18/2025 Progress Notes Patient: MARIA DE JESUS THOMPSON Provider: Radha Robledo MD :1960 A ge:64 Y S ex:Male Date:02/18/2025 Address:[address], [facility], [id number] Subjective: * Chief Complaints: * 6 monthPatient would like a script for Doxycycline * HPI: S ymptom(s): patient is a 64 yo male here for 6 month follow up visit/ here for follow up. * ROS: G eneral/Constitutional: Denies C hills. D enies F atigue. D enies F ever. D enies H eadache. E NT: Patient complaining of b ilateral ear pressure . D enies S ore throat. R espiratory: Denies S hortness of breath at rest. D enies S hortness of breath with exertion. G astrointestinal: Denies D iarrhea. D enies N ausea. * Medical History: * Surgical History: * Hospitalization/Major Diagno stic Procedure: * Medications: T akingTadalafil 20 MG Tablet 1/2 tablet Orally Once a day as needed Atorvastatin Calcium 40 MG Tablet TAKE 1 TABLET BY MOUTH EVERY DAY Taking Tadalafil 20 MG Tablet 1/2 tablet Orally Once a day as needed Taking Atorvastatin Calcium 40 MG Tablet TAKE 1 TABLET BY MOUTH EVERY DAY Not-Taking/PRNDoxycycline Hyclate 100 MG Capsule 1 capsule Orally Twice a day Medication List reviewed and reconciled with the patientNot-Taking/PRN Doxycycline Hyclate 100 MG Capsule 1 capsule Orally Twice a day Medication List reviewed and reconciled with the patient * Allergies: N .K.D.A.yes[Allergies Verified] Objective: * Vitals: H t: 69, Wt: 277, BMI:40.9, BP:140/82, Repeat BP:130/84, Wt-k.65. weight is juanpablo 2 pounds since 08-16-24. * P ast Orders: L ab:Liver Panel (Order Date - 02/11/2025) (Collection Date & Time - 02/11/2025 07:30 AM) Value Reference Range Bilirubin Total 0.7 0.0-1.0 - mg/dL Bilirubin Direct 0.2 0.0-0.5 - mg/dL Aspartate Amino Transferase 32 5-37 - U/L Alanine Aminotransferase 32 0-40 - U/L Total Protein 7.2 6.5-8.0 - g/dL Albumin Level 4.3 3.5-5.0 - g/dL Alkaline Phosphatase 103 39-117 - U/L L ab:Lipid Panel with Reflex (Order Date - 02/11/2025) (Collection Date & Time - 02/11/2025 07:30 AM) Value Reference Range Triglycerides 162 H <150 - mg/dL Cholesterol 149 <200 - mg/dL LDL Cholesterol Calculated 79 <100 - mg/dL HDL Cholesterol 38 L >40 - mg/dL * Examination: G eneral Examination: GENERAL APPEARANCE: a lert, well hydrated, in no distress.? HEAD: n ormocephalic. SKIN: g ood turgor. HEART: r egular rate and rhythm, no murmurs, rubs, gallops.? LUNGS: n o wheezes, rales, rhonchi, good air movement, clear to auscultation bilaterally. Assessment: * Assessment: 1. T ick bite - W57.XXXA (Primary) 2 . P ure hypercholesterolemia - E78.00? 3. G uaiac + stool - R19.5 Plan: * Treatment: 2. P ure hypercholesterolemia Notes: doing well, will continue current regiment 3. G uaiac + stool Notes: get urgent colonoscopy with dr nath ? Referral To:Rohan Nath Gastroenterology Reason:needs urgent Colonoscopy * Procedure Codes: * * Sign off status: Completed true * Provider: Radha Robledo MD Date: 0 02/18/2025 Generated for Anabelle pandya/Rosalio/Bereitting on: 1 05:39 PM EST History and Physical Notes * HPI (History of Present Illness) Category Sub-Category Detail Notes Category Not es Symptom(s) patient is a 64 yo male here for 6 month follow up visit/ here for follow up. Examination Category Sub-Category Detail Notes Category Not es General Examination GENERAL APPEARANCE: alert, w ell hydrated, in no distress HEAD: normocephalic HEART: regular rate and rhy thm, no murmurs, rubs, gallops LUNGS: no wheezes, rales, r honchi, good air movement, clear to auscultation bilaterally SKIN: good turgor Consultation Request Notes Referral Date Referring Provider Referred Provider Not es 02/18/2025 Carlitos Robledo, Rohan gentile urge nt Colonoscopy
--- OUTSIDE RECORDS SUMMARY | 2025-04-04 08:00 | XMS_ITS ---
Author Organization [facility] Address [address] [place] [id number] Care Team Providers Care Union Organizer Name Role Phone Meena MEDINA, Carlitos Primary Care Provider Rohan Rosenberg [phone] REASON FOR VISIT heme positive stool Encounters Encounter Location Date Provider Diagnosis [facility] Outpatient [address] [place] [phone] 04/04/2025 Rohan Ambriz Plan Of Treatment No Information Progress Notes * NOVOAMARIA DE JESUSDOB:1960 ( 64 yo M)Acc No.[id number]:04/04/2025 COLON WITH MAC Patient: MARIA DE JESUS THOMPSON Provider: Mel Ambriz MD :1960 A ge:64 Y S ex:Male Date:04/04/2025 Address:[address] [place], [facility] Pcp:Carlitos Robledo MD Subjective: * Chief Complaints: * H carlos positive stool Billing Information: * Procedure Codes: * The named appointment provid er may or may not be the originator of this progress note, and it is not deemed complete until electronically signed by the appointment provider. Sign off status: Pending * Provider: Mel Ambriz MD Date: 0 04/04/2025 Generated for Anabelle pandya/Rosalio/eTalessandrasmitting on: 05:40 PM EST
--- OUTSIDE RECORDS SUMMARY | 2025-06-10 05:15 | XMS_ITS ---
Author Organization Carlitos Robledo MD Address [address] [place], [place] [id number] Care Team Providers Care Temporary Help Agency Referral Clerk Name Role Phone Carlitos Robledo Primary Care Provider [phone] Allergies No Known Allergies Results Component Value Reference Range Notes TSH reflex Free T4 Reviewed date:06/10/2025 06:54:16 PM Interpretation: Performing Lab:[facility], [address] [place] [phone] Notes/Report: TSH reflex Free T4 3.92 0.32-4.0 uIU/mL Testosterone, Free/Total Reviewed date:06/16/2025 02:25:56 PM Interpretation: Performing Lab:[facility], [address] [place] [phone] Notes/Report: Testosterone, Total 520 491-5676 ng/dL Men with clinically significant hypogonadal symptoms and testosterone values repeatedly in the range of the 200-300 ng/dL or less, may benefit from testosterone treatment after adequate risk and benefits counseling. For additional information, please refer to http://education.Numari.com/faq/ AprleQjgfddfvhdbdLCFUEFEJM075 (This link is being provided for informational/ educational purposes only.) This test was developed and its analytical performance characteristics have been determined by [facility] [place], [place]. It has not been cleared or approved by the U.S. Food and Drug Administration. This assay has been validated pursuant to the CLIA regulations and is used for clinical purposes. Testosterone, Free 32.1 35.0-155.0 pg/mL This test was developed and its analytical performance characteristics have been determined by [facility] [place], [place]. It has not been cleared or approved by the U.S. Food and Drug Administration. This assay has been validated pursuant to the CLIA regulations and is used for clinical purposes. THIS TEST WAS PERFORMED AT: [facility] [address] [place], [place] RACHEL LEMA MD,PHD Reason For Referral Reason Obesity testostero ne deficiency Diagnosis 1 Obesity (E66.9) Diagnosis 2 Testosterone deficie ncy (E29.1) Referral Organization Carlitos Robledo MD Referring Provider First Name Carlitos Referring Provider Last Name Meena Referring Provider Speciality Internal M edicine Referred Provider Rohan Panda Referred Provider Specialty Endocrinolog y General Notes Deedee Sanderson 0 06/10/2025 10:56:43 AM >labs pendingKin Annette 06/20/2025 02:03:04 PM > info faxed with lab results, Deedee Sanderson 07/05/2025 03:00:23 PM >was told to refaxedKin Annette 07/19/2025 10:27:54 AM > referral info mailed to patient Referral Priority Routine Referral Appointment Date 09/09/2025 REASON FOR VISIT ? Endocrine Weight gain Medications Medication SIG (Take, Route, Frequency, Duration) Notes Start Date End Date Status Doxycycline Hyclate 100 MG 1 capsule Orally twice a day for 1 days 02/18/2025 Active Tadalafil 20 MG 1/2 tablet Orally On ce a day as needed 07/28/2021 Active Doxycycline Hyclate 100 MG 1 capsule Orally Twice a day for 2 days 02/08/2023 Not-Taking Atorvastatin Calcium 40 MG TAKE 1 TABLET BY MOUTH EVERY DAY for 90 Active Immunizations Vaccine Route Administration Date Status Comme nts Fluarix Quadrivalent - 150 IM Intramuscular 06/10/2025 Adm inistered Problems Problem Type SNOMED Code ICD Code Onset Dates Problem Status W/U Status Risk Notes Problem Obesity (039562446) Obesity (E66.9) Active confirmed Problem Erectile dysfunction (939655944) Erectile dysfunction (N52.9) Active confirmed Vital Signs Blood pressure systolic 154 mm Hg 06/10/20 25 Blood pressure diastolic 82 mm Hg 025 Height 69 in 06/10/2025 Weight 274 lbs 06/10/2025 BMI 40.46 kg/m2 06/10/2025 weight is down 3 pounds formerly [facility] 02-18-25 Encounters Encounter Location Date Provider Diagnosis Carlitos Robledo MD [address] [place] [address] [place] [phone] 06/10/2025 Carlitos Robledo Pure hypercholestero lemia E78.00 ; Obesity E66.9 ; Erectile dysfunction N52.9 and Encounter for administration of vaccine Z23 Assessments Encounter Date Diagnosis (ICD Code) Assessment Notes Treatment Notes Treatment Clinical Notes Section Notes 06/10/2025 Pure hypercholesterolemia (ICD-10 - E78.00) will continue current regiment 06/10/2025 Obesity (ICD-10 - E66.9) 06/10/2025 Erectile dysfunction (ICD-10 - N52.9) will continue current regiment 06/10/2025 Encounter for administration of vaccine (ICD-10 - Z23) HD flu vaccine administered 06/10/2025 Other refer to endocrinolgy Plan Of Treatment Medication Medication Name Sig Start Date Stop Date Notes Tadalafil 20 MG 1/2 tablet Orally Once a day as needed Treatment Notes Assessment Notes Pure hypercholesterolemia will continue current regiment Erectile dysfunction will continue curre nt regiment Encounter for administration of vaccine HD flu vaccine administered Other refer to endocrinolg y Referrals Referral Date Details 06/10/2025 06/10/2025, Obesity testosterone deficiency, Rohan Farzad Next Appt Details Follow Up: 4 Weeks, Reason: Provider Name:Carlitos tinsley, 02/11/2026 07:15:00 AM, [address] [place] [address], Suite [facility], [place], [place], [phone], Provider Name:Carlitos tinsley, 02/18/2026 08:45:00 AM, [address] [place] [address], [place] [address], [place], [place], [phone], Provider Name:Carlitos tinsley, 08/19/2026 07:30:00 AM, [address] [place] [address], [address], [phone], Provider Name:Carlitos tinsley, 08/26/2026 08:30:00 AM, [address] [place] [address] Drive, [address], [place], [place], [phone], Progress Notes * MARIA DE JESUS NOVOADOB:1960 ( 64 yo M)Acc No.[id number]:06/10/2025 Progress Notes Patient: MARIA DE JESUS THOMPSON Provider: Radha Robledo MD :1960 A ge:64 Y S ex:Male Date:06/10/2025 Address:[address], [place], [id number] Subjective: * Chief Complaints: * ? Endocrine Weight gain * HPI: S ymptom(s): patient is a 64 yo male here with issue of weight gain. * ROS: G eneral/Constitutional: Nateies [place] hills. D enies F atigue. D enies F ever. D enies H eadache. E NT: Denlore S ore throat. R espiratory: Denies C ough. D enies S hortness of breath at rest. D enies S hortness of breath with exertion. G astrointestinal: Denlore D iarrhea. D enies N ausea. * Medical History: * Surgical History: * Hospitalization/Major Diagno stic Procedure: * Medications: T akingTadalafil 20 MG Tablet 1/2 tablet Orally Once a day as needed Doxycycline Hyclate 100 MG Capsule 1 capsule Orally twice a day Atorvastatin Calcium 40 MG Tablet TAKE 1 TABLET BY MOUTH EVERY DAY Taking Tadalafil 20 MG Tablet 1/2 tablet Orally Once a day as needed Taking Doxycycline Hyclate 100 MG Capsule 1 capsule Orally twice a day Taking Atorvastatin Calcium 40 MG Tablet TAKE 1 TABLET BY MOUTH EVERY DAY Not-Taking/PRNDoxycycline Hyclate 100 MG Capsule 1 capsule Orally Twice a day Medication List reviewed and reconciled with the patientNot-Taking/PRN Doxycycline Hyclate 100 MG Capsule 1 capsule Orally Twice a day Medication List reviewed and reconciled with the patient * Allergies: N .K.D.A.yes[Allergies Verified] Objective: * Vitals: H t: 69, Wt: 274, BMI:40.46, BP:154/82, Repeat BP:140/74, Wt-k.29. weight is down 3 pounds since 02-18-25. * Examination: G eneral Examination: GENERAL APPEARANCE: w ell developed, well nourished. HEAD: n ormocephalic. SKIN: g ood turgor. HEART: n o murmurs, rubs, gallops, regular rate and rhythm.? LUNGS: n o wheezes, rales, rhonchi, good air movement, clear to auscultation bilaterally. Assessment: * Assessment: 1. O besity - E66.9 (Primary) 2 . P ure hypercholesterolemia - E78.00 ? 3 . E rectile dysfunction - N52.9 4 . E ncounter for administration of vaccine - Z23 Plan: * Treatment: 2. P ure hypercholesterolemia L AB: Testosterone, Free/Total (Collection Date & Time - 06/10/2025 10:15 AM) Notes: will continue current regiment 3. E rectile dysfunction Continue Tadalafil Tablet, 20 MG, 1/2 tablet, Orally, Once a day as needed. Notes: will continue current regiment 4. E ncounter for administration of vaccine L AB: Testosterone, Free/Total (Collection Date & Time - 06/10/2025 10:15 AM) Notes: HD flu vaccine administered 5. O thers Notes: refer to endocrinolgy * Immunizations: Fluarix Quadrivalent - 150 : 0.5 mL (Dose No:1) (Route: Intramuscular) given by Vanessa Finch , Office Staff on Left Deltoid * Procedure Codes: 9 0656 FLU VACCINE NO PRESERV 3 & >09743 VENIPUNCT, ROUTINE* * Follow Up: 4 Weeks * * Sign off status: Completed true * Provider: Radha Robledo MD Date: 0 06/10/2025 Generated for Anabelle pandya/Rosalio/Bereitting on: 05:40 PM EST History and Physical Notes * HPI (History of Present Illness) Category Sub-Category Detail Notes Category Not es Symptom(s) patient is a 64 yo male here with issue of weight gain Examination Category Sub-Category Detail Notes Category Not es General Examination GENERAL APPEARANCE: well developed , well nourished HEAD: normocephalic HEART: no murmurs, rubs, ga llops, regular rate and rhythm LUNGS: no wheezes, rales, r honchi, good air movement, clear to auscultation bilaterally SKIN: good turgor Consultation Request Notes Referral Date Referring Provider Referred Provider Not casi 06/10/2025 Carlitos Robledo, Rohan Grady testosterone deficiency
--- OUTSIDE RECORDS SUMMARY | 2025-07-08 06:00 | XMS_ITS ---
Author Organization Carlitos Robledo MD Address [address] [place] [phone] Care Team Providers Care License Issuer Name Role Phone Carlitos Robledo Primary Care Provider Allergies No Known Allergies REASON FOR VISIT 4 week Medications Medication SIG (Take, Route, Frequency, Duration) Notes Start Date End Date Status Doxycycline Hyclate 100 MG 1 capsule Orally Twice a day for 2 days 02/08/2023 Not-Taking Tadalafil 20 MG 1/2 tablet Orally On ce a day as needed 07/28/2021 Active Atorvastatin Calcium 40 MG TAKE 1 TABLET BY MOUTH EVERY DAY for 90 Active Doxycycline Hyclate 100 MG 1 capsule Orally twice a day for 1 days 02/18/2025 Not-Taking Problems Problem Type SNOMED Code ICD Code Onset Dates Problem Status W/U Status Risk Notes Problem Androgen deficiency (15960793) Testosterone deficiency (E29.1) Active confirmed Vital Signs Blood pressure systolic 144 mm Hg 07/08/20 25 Blood pressure diastolic 80 mm Hg 025 Height 69 in 07/08/2025 Weight 273 lbs 07/08/2025 BMI 40.31 kg/m2 07/08/2025 Encounters Encounter Location Date Provider Diagnosis Carlitos Robledo MD [address] [place] [phone] 07/08/2025 Carlitos Robledo Testosterone deficiency E29.1 and BMI 40.0-44.9, adult Z68.41 Assessments Encounter Date Diagnosis (ICD Code) Assessment Notes Treatment Notes Treatment Clinical Notes Section Notes 07/08/2025 Testosterone deficiency (ICD-10 - E29.1) referral to endocrine for further evaluation/ referral for Endo already in system, waiting for an appt 07/08/2025 BMI 40.0-44.9, adult (ICD-10 - Z68.41) is not able to lose weight. Plan Of Treatment Treatment Notes Assessment Notes Testosterone deficiency referral to endo crine for further evaluation/ referral for Endo already in system, waiting for an appt BMI 40.0-44.9, adult is not able to lose weight. Next Appt Details Provider Name:Carlitosjasmin Wilson ier, 02/11/2026 07:15:00 AM, [address] [place] [address], Suite [facility], [place], [place], [phone], Provider Name:Carlitos Jc Katie ier, 02/18/2026 08:45:00 AM, [address] [place] [address], Suite [facility], [place], [place], [phone], Provider Name:Carlitos Jc Katie ier, 08/19/2026 07:30:00 AM, [address] [place] [address], Suite [facility], [place], [place], [phone], Provider Name:Carlitos Greene Katie ier, 08/26/2026 08:30:00 AM, [address] [place] [address], Suite [facility], [place], [place], [phone], Progress Notes * MARIA DE JESUS NOVOADOB:1960 ( 64 yo M)Acc No.[id number]:07/08/2025 Progress Notes Patient: MARIA DE JESUS THOMPSON Provider: Radha Robledo MD :1960 A ge:64 Y S ex:Male Date:07/08/2025 Address:[address] [facility], [facility], [id number] Subjective: * Chief Complaints: * 4 week * HPI: S ymptom(s): patient is a 64 yo male here for 4 week follow up visit. * ROS: G eneral/Constitutional: [place]von [place]. D enies F atigue. D enies F ever. D enies H eadache. E NT: Denies S ore throat. R espiratory: Denies C ough. D enies S hortness of breath at rest. D enies S hortness of breath with exertion. G astrointestinal: Denies D iarrhea. D enies N ausea. * Medical History: * Surgical History: * Hospitalization/Major Diagno stic Procedure: * Medications: T akingAtorvastatin Calcium 40 MG Tablet TAKE 1 TABLET BY MOUTH EVERY DAY Tadalafil 20 MG Tablet 1/2 tablet Orally Once a day as needed Taking Atorvastatin Calcium 40 MG Tablet TAKE 1 TABLET BY MOUTH EVERY DAY Taking Tadalafil 20 MG Tablet 1/2 tablet Orally Once a day as needed Not-Taking/PRNDoxycycline Hyclate 100 MG Capsule 1 capsule Orally twice a day Doxycycline Hyclate 100 MG Capsule 1 capsule Orally Twice a day Medication List reviewed and reconciled with the patientNot-Taking/PRN Doxycycline Hyclate 100 MG Capsule 1 capsule Orally twice a day Not-Taking/PRN Doxycycline Hyclate 100 MG Capsule 1 capsule Orally Twice a day Medication List reviewed and reconciled with the patient * Allergies: N .K.D.A.yes[Allergies Verified] Objective: * Vitals: H t: 69, Wt: 273, BMI:40.31, BP:144/80, Repeat BP:138/90, Wt-k.83. * P ast Orders: L ab:TSH reflex Free T4 (Order Date - 06/10/2025) (Collection Date & Time - 06/10/2025 10:15 AM) Value Reference Range TSH reflex Free T4 3.92 0.32-4.0 - uIU/mL L ab:Testosterone, Free/Total (Order Date - 06/10/2025) (Collection Date & Time - 06/10/2025 10:15 AM) Value Reference Range Testosterone, Total 822 228-4947 - ng/dL Testosterone, Free 32.1 A 35.0-155.0 - pg/mL * Examination: G eneral Examination: GENERAL APPEARANCE: a lert, well hydrated, in no distress.? HEAD: n ormocephalic. HEART: r egular rate and rhythm, no murmurs, rubs, gallops.? Assessment: * Assessment: 1. T estosterone deficiency - E29.1 (Primary) 2 . B VT 40.0-44.9, adult - Z68.41 Plan: * Treatment: 2. B VT 40.0-44.9, adult Notes: is not able to lose weight. * Procedure Codes: * * Sign off status: Completed true * Provider: Radha Robledo MD Date: 1 Generated for Anabelle pandya/Rosalio/Bereitting on: 05:40 PM EST History and Physical Notes * HPI (History of Present Illness) Category Sub-Category Detail Notes Category Not es Symptom(s) patient is a 64 yo male here for 4 week follow up visit Examination Category Sub-Category Detail Notes Category Not es General Examination GENERAL APPEARANCE: alert, w ell hydrated, in no distress HEAD: normocephalic HEART: regular rate and rhy thm, no murmurs, rubs, gallops
--- OUTSIDE RECORDS SUMMARY | 2025-08-15 02:00 | XMS_ITS ---
Author Organization Carlitos Robledo MD Address [address] [place], [place] [id number] Care Team Providers Care Tractor Driver Name Role Phone Carlitos Robledo Primary Care Provider Results Component Value Reference Range Notes Complete Blood Count Auto Di ff Reviewed date:08/15/2025 12:44:52 PM Interpretation: Performing Lab:[facility], [address] [place] [phone] Notes/Report: White Blood Count 7.5 4.8-10.8 X10*3/uL Red Blood Count 5.21 4.60-5.80 X10*6/uL Hemoglobin 16.0 14.0-18.0 g/dl Hematocrit 48.6 42.0-52.0 % Mean Corpuscular Volume 93.3 80.0-98.0 fL Mean Corpuscular Hemoglobin 30.7 27.0-33.0 pg Mean Corpuscular HGB Conc 32.9 31.0-36.0 g/dl Red Cell Distribution Width 13.8 11.0-16.0 % Platelet Count 232 160-400 X10*3/uL Mean Platelet Volume 10.5 9.4-12.4 fL Neutrophils Percent Auto 60.5 45-73 % Imm Gran Pct Auto 0.3 0.0-0.4 % Lymphocytes Percent Auto 25.1 20-40 % Monocytes Percent Auto 10.0 2-11 % Eosinophils Percent Auto 3.6 0-4 % Basophils Percent Auto 0.5 0-2 % NRBC Pct Auto 0.0 0.0-0.2 /100WBC Neutrophils Absolute Auto 4.6 2.0-8.3 x10*3/u L Imm Gran Abs Auto 0.02 0.00-0.03 X10*3/uL Lymphocytes Absolute Auto 1.9 1.2-4.9 X10*3/u L Monocytes Absolute Auto 0.8 0.1-1.2 X10*3/uL Eosinophils Absolute Auto 0.3 0.0-0.4 X10*3/u L Basophils Absolute Auto 0.0 0.0-0.2 X10*3/uL NRBC Abs Auto 0.000 0.0-0.012 X10*3/uL Lipid Panel Reviewed date:08/15/2025 05:41:30 PM Interpretation: Performing Lab:[address] [phone] Notes/Report: Triglycerides 125 <150 mg/dL Desirable Triglyceride: less than 150 [...] or equal to 190 mg/dL HDL Cholesterol 45 >40 mg/dL Desirable HDL: greater than 40 mg/dL Note: This HDL assay may give artificially low results in patients with liver disease. PSA,Total (Free>4and<10) Reviewed date:08/22/2025 02:52:34 PM Interpretation:08-22-2025 Performing Lab:[facility], [address] [place] [phone] Notes/Report: PSA,Total (Free>4and<10) 2.08 0.00-4.00 ng/mL A Free PSA was not [...] Castrejon Alinity i Chemiluminescent Microparticle Immunoassay (CMIA) Testosterone, Free/Total Reviewed date:08/22/2025 08:58:44 AM Interpretation: Performing Lab:[facility], [address] [place] [phone] Notes/Report: Testosterone, Total 268 342-3325 ng/dL Men with clinically significant hypogonadal symptoms and testosterone values repeatedly in the range of the 200-300 ng/dL or less, may benefit from testosterone treatment after adequate risk and benefits counseling. For additional information, please refer to http://education.DGSE/faq/ TotalTestosteroneLCMSMSFAQ1 65 (This link is being provided for informational/ educational purposes only.) This test was developed and its analytical performance characteristics have been determined by [facility] [place], [place]. It has not been cleared or approved by the U.S. Food and Drug Administration. This assay has been validated pursuant to the CLIA regulations and is used for clinical purposes. Testosterone, Free 52.9 35.0-155.0 pg/mL This test was developed and its analytical performance characteristics have been determined by [facility] [place], [place]. It has not been cleared or approved by the U.S. Food and Drug Administration. This assay has been validated pursuant to the CLIA regulations and is used for clinical purposes. THIS TEST WAS PERFORMED AT: [facility] [address] RACHEL LEMA MD,PHD UA ClnCatch+Micro w/rflx Cul t Reviewed date:08/15/2025 12:42:17 PM Interpretation: Performing Lab:[facility], [address] [place] [phone] Notes/Report: Urine, Clean Catch Color Urine Yellow Appearance Urine Clear PH 6.5 5.0-9.0 Glucose Urine UA Negative Negative mg/dL Urine Blood Negative Negative Specific Beaver - Urine 1.020 1.005-1.025 Urine Protein Negative Neg-Trace mg/dL Urine Ketones Negative Negative mg/dL Nitrite Urine Negative Negative Leukocyte Esterase Urine Negative Negative RBC Urine 0-2 0-2 /HPF WBC Urine 0-5 0-5 /HPF Squamous Epithelial Cell Urine 0-2 0-2 /HPF Bacteria Urine None Seen None Seen Hyaline Casts Urine 0-2 0-2 /LPF REASON FOR VISIT yearly fasty labs Encounters Encounter Location Date Provider Diagnosis Carlitos Robledo MD [address] [place] [phone] 08/15/2025 Carlitos Robledo Blood tests for rout ine general physical examination Z00.00 ; Pure hypercholesterolemia E78.00 and Testosterone deficiency E29.1 Assessments Encounter Date Diagnosis (ICD Code) Assessment Notes Treatment Notes Treatment Clinical Notes Section Notes 08/15/2025 Blood tests for rout ine general physical examination (ICD-10 - Z00.00) 08/15/2025 Pure hypercholesterolemia (ICD-10 - E78.00) 08/15/2025 Testosterone deficie ncy (ICD-10 - E29.1) Plan Of Treatment Pending Test Test Name Order Date Comprehensive [place]. Panel Fast Next Appt Details Provider Name:Carlitos tinsley, 02/11/2026 07:15:00 AM, [address] [place] [address], [address], [phone], Provider Name:Carlitos tinsley, 02/18/2026 08:45:00 AM, [address] [place] [address], [phone], Provider Name:Carlitos tinsley, 08/19/2026 07:30:00 AM, [address] [place] [address], [address], [phone], Provider Name:Carlitos tinsley, 08/26/2026 08:30:00 AM, [address] [place] [address], [phone], Progress Notes * MARIA DE JESUS NOVOADOB:1960 ( 64 yo M)Acc No.[id number]:08/15/2025 Progress Note Patient: Alexsandra ELIAZARCHICHIMARIA DE JESUS Provider: Radha Robledo MD :1960 A ge:64 Y S ex:Male Date:08/15/2025 Address:[address], [place], [id number] Subjective: * Chief Complaints: * 1 . Yearly fasty labs. * Medical History: Objective: * Vitals: Assessment: * Assessment: 1. B lood tests for routine general physical examination - Z00.00 (Primary) 2 .?Pure hypercholesterolemia - E78.00 3 . T estosterone deficiency - E29.1? Plan: * Treatment: 2. P ure hypercholesterolemia L AB: Comprehensive [place]. Panel Fast L AB: Complete Blood Count Auto Diff (Collection Date & Time - 08/15/2025 12:50 PM) L AB: Lipid Panel (Collection Date & Time - 08/15/2025 07:00 AM) L AB: PSA,Total (Free>4and<10) (Collection Date & Time - 08/15/2025 07:00 AM) L AB: Testosterone, Free/Total (Collection Date & Time - 08/15/2025 07:00 AM) L AB: UA ClnCatch+Micro w/rflx Cult (Collection Date & Time - 08/15/2025 12:50 PM) 3. T estosterone deficiency L AB: Comprehensive [place]. Panel Fast L AB: Complete Blood Count Auto Diff (Collection Date & Time - 08/15/2025 12:50 PM) L AB: Lipid Panel (Collection Date & Time - 08/15/2025 07:00 AM) L AB: PSA,Total (Free>4and<10) (Collection Date & Time - 08/15/2025 07:00 AM) L AB: Testosterone, Free/Total (Collection Date & Time - 08/15/2025 07:00 AM) L AB: UA ClnCatch+Micro w/rflx Cult (Collection Date & Time - 08/15/2025 12:50 PM) * Procedure Codes: 3 6415 VENIPUNCT, ROUTINE* * * The named appointment provid er may or may not be the originator of this progress note, and it is not deemed complete until electronically signed by the appointment provider. Sign off status: Pending * Provider: Radha Robledo MD Date: 1 10/16/2024 Generated for Anabelle pandya/Rosalio/Harmony on: 05:40 PM EST
--- OUTSIDE RECORDS SUMMARY | 2025-08-22 06:00 | XMS_ITS ---
Author Organization Carlitos Robledo MD Address [address] [place], [place] [id number] Care Team Providers Care Sales Center Manager Name Role Phone Carlitos Robledo Primary Care Provider [phone] Allergies No Known Allergies REASON FOR VISIT annual visit/ must see PSA Medications Medication SIG (Take, Route, Frequency, Duration) Notes Start Date End Date Status Tadalafil 20 MG 1/2 tablet Orally On ce a day as needed 07/28/2021 Active Atorvastatin Calcium 40 MG TAKE 1 TABLET BY MOUTH EVERY DAY for 90 Active Doxycycline Hyclate 100 MG 1 capsule Orally Twice a day for 2 days 02/08/2023 Not-Taking Doxycycline Hyclate 100 MG 1 capsule Orally twice a day for 1 days 02/18/2025 Not-Taking Social History Tobacco Use: Social History Observation [...] Interpretation Negative Vital Signs Blood pressure systolic 132 mm Hg 08/22/20 25 Blood pressure diastolic 70 mm Hg 025 Height 69 in 08/22/2025 Weight 271 lbs 08/22/2025 BMI 40.02 kg/m2 08/22/2025 Encounters Encounter Location Date Provider Diagnosis Carlitos Robledo MD [address] [place] [address] Drive [address] [place], [place] [id number] 08/22/2025 Carlitos Robledo Rising PSA level R97 .20 ; Adult general medical exam Z00.00 ; Pure hypercholesterolemia E78.00 ; BMI 40.0-44.9, adult Z68.41 ; Testosterone deficiency E29.1 and Depression screen Z13.31 Assessments Encounter Date Diagnosis (ICD Code) Assessment Notes Treatment Notes Treatment Clinical Notes Section Notes 08/22/2025 Rising PSA level (IC D-10 - R97.20) will cntinue to monitor, future labs ordered 08/22/2025 Adult general medica l exam (ICD-10 - Z00.00) labs reviewed and discussed with patient 08/22/2025 Pure hypercholesterolemia (ICD-10 - E78.00) well controlled, will cpntinue current regiment 08/22/2025 BMI 40.0-44.9, adult (ICD-10 - Z68.41) is trying to lose weight, advised on diet and exercise 08/22/2025 Testosterone deficie ncy (ICD-10 - E29.1) repeat one was normal, will continue to monitor 08/22/2025 Depression screen (ICD-10 - Z13.31) negative screen Plan Of Treatment Treatment Notes Assessment Notes Rising PSA level will cntinue to leno tor, future labs ordered Adult general medical exam labs reviewed and discussed with patient Pure hypercholesterolemia well controlle d, will cpntinue current regiment BMI 40.0-44.9, adult is trying to lose w eight, advised on diet and exercise Testosterone deficiency repeat one was n ormal, will continue to monitor Depression screen negative screen Future Test Test Name Order Date PSA,Total (Free>4and<10) 11/20/2025 Next Appt Details Follow Up: 6 Months, Reason: Provider Name:Carlitos tinsley, 02/11/2026 07:15:00 AM, [address] [place] [address], [address], [place], [place], [phone], Provider Name:Carlitos tinsley, 02/18/2026 08:45:00 AM, [address], [address], [place], [place], [id number], Provider Name:Carlitos Wilson ier, 08/19/2026 07:30:00 AM, [address], [address], [place], [id number], Provider Name:Carlitos Wilson ier, 08/26/2026 08:30:00 AM, [address] [facility], [address], [place], [id number], Progress Notes * MARIA DE JESUS NOVOADOB:1960 ( 64 yo M)Acc No.[id number]:08/22/2025 Progress Notes Patient: MARIA DE JESUS THOMPSON Provider: Radha Robledo MD :1960 A ge:64 Y S ex:Male Date:08/22/2025 Address:[address] [facility], [place], [id number] Subjective: * Chief Complaints: * a nnual visit/ must see PSA * HPI: D epression Screening: PHQ-9 L [...] at all, T otal Score 0 . C ommunication Needs: Communication Needs D oes the patient have a hearing impairment N o, D oes the patient have a vision impairment? Y es, I f yes, what is the vision impairment? G lasses, D oes the patient have a cognition impairment? N o. F all Risk: History H ave you [...] needed? Check all that apply: N one. S ymptom(s): patient is a 64 yo male here for annual visit with review of recent labs and follow up of chronic issues. * ROS: G eneral/Constitutional: Change in appetite [...] N ausea d enies. R ectal bleeding d enies. V omiting d enies . G enitourinary: [...] son(s) , 1 daughter(s) . . Father- FRANKLINA Mother- Lung cancer, Denies mental health/substance abuse [...] works full-time. Pets: none, dogsx1 horse x2. * Medications: T akingAtorvastatin Calcium 40 MG [...] Objective: * Vitals: H t: 69, Wt: 271, BMI:40.02, BP:132/70, Wt-k.92. * P ast Orders: L ab:Comprehensive Met. Panel (Order Date - 08/15/2025) (Collection Date & Time - 08/15/2025 07:00 AM) Value Reference Range Sodium 142 135-145 - mmol/L Bilirubin Total 0.8 0.0-1.0 - mg/dL Aspartate Amino Transferase 32 5-37 - U/L Alanine Aminotransferase 27 0-40 - U/L Total Protein 7.3 6.5-8.0 - g/dL Albumin Level 4.5 3.5-5.0 - g/dL Alkaline Phosphatase 109 39-117 - U/L Potassium 4.4 3.3-5.1 - mmol/L Chloride 108 96-108 - mmol/L Carbon Dioxide 24 22-29 - mmol/L Anion Gap 14 12-20 - Blood Urea Nitrogen 22 H 9-16 - mg/dL Creatinine 0.95 0.5-1.4 - mg/dL Estimated Glomerular Filt Rate > 60 - Glucose Random 100 60-115 - mg/dL Calcium 9.4 8.4-10.2 - mg/dL L ab:Lipid Panel (Order Date - 08/15/2025) (Collection Date & Time - 08/15/2025 07:00 AM) Value Reference Range Triglycerides 125 <150 - mg/dL Cholesterol 149 <200 - mg/dL LDL Cholesterol Calculated 79 <100 - mg/dL HDL Cholesterol 45 >40 - mg/dL L ab:Complete Blood Count Auto Diff (Order Date - 08/15/2025) (Collection Date & Time - 08/15/2025 12:50 PM) Value Reference Range White Blood Count 7.5 4.8-10.8 - X10*3/uL Red Blood Count 5.21 4.60-5.80 - X10*6/uL Hemoglobin 16.0 14.0-18.0 - g/dl Hematocrit 48.6 42.0-52.0 - % Mean Corpuscular Volume 93.3 80.0-98.0 - fL Mean Corpuscular Hemoglobin 30.7 27.0-33.0 - pg Mean Corpuscular HGB Conc 32.9 31.0-36.0 - g/ dl Red Cell Distribution Width 13.8 11.0-16.0 - % Platelet Count 232 160-400 - X10*3/uL Mean Platelet Volume 10.5 9.4-12.4 - fL Neutrophils Percent Auto 60.5 45-73 - % Imm Gran Pct Auto 0.3 0.0-0.4 - % Lymphocytes Percent Auto 25.1 20-40 - % Monocytes Percent Auto 10.0 2-11 - % Eosinophils Percent Auto 3.6 0-4 - % Basophils Percent Auto 0.5 0-2 - % NRBC Pct Auto 0.0 0.0-0.2 - /100WBC Neutrophils Absolute Auto 4.6 2.0-8.3 - x10* 3/uL Imm Gran Abs Auto 0.02 0.00-0.03 - X10*3/uL Lymphocytes Absolute Auto 1.9 1.2-4.9 - X10* 3/uL Monocytes Absolute Auto 0.8 0.1-1.2 - X10*3/ uL Eosinophils Absolute Auto 0.3 0.0-0.4 - X10* 3/uL Basophils Absolute Auto 0.0 0.0-0.2 - X10*3/ uL NRBC Abs Auto 0.000 0.0-0.012 - X10*3/uL L ab:UA ClnCatch+Micro w/rflx Cult (Order Date - 08/15/2025) (Collection Date & Time - 08/15/2025 12:50 PM) Value Reference Range Color Urine Yellow - Appearance Urine Clear - PH 6.5 5.0-9.0 - Glucose Urine UA Negative Negative - mg/dL Urine Blood Negative Negative - Specific [place] - Urine 1.020 1.005-1.025 - Urine Protein Negative Neg-Trace - mg/dL Urine Ketones Negative Negative - mg/dL Nitrite Urine Negative Negative - Leukocyte Esterase Urine Negative Negative - RBC Urine 0-2 0-2 - /HPF WBC Urine 0-5 0-5 - /HPF Squamous Epithelial Cell Urine 0-2 0-2 - /HP F Bacteria Urine None Seen None Seen - Hyaline Casts Urine 0-2 0-2 - /LPF L ab:Testosterone, Free/Total (Order Date - 08/15/2025) (Collection Date & Time - 08/15/2025 07:00 AM) Value Reference Range Testosterone, Total [phone] - ng/dL Testosterone, Free 52.9 35.0-155.0 - pg/mL * Examination: G eneral [...] external hemorrhoids, no masses palpable, prostate normal, no stool but just had colonoscopy. MALE GENITOURINARY: c ircumcised, no testicular mass, testes descended bilaterally. EXTREMITIES: n o clubbing, cyanosis, or edema. NEUROLOGIC: n onfocal, motor strength normal upper and lower extremities, sensory exam intact. Assessment: * Assessment: 1. A dult general medical exam - Z00.00 (Primary) 2 . R ising PSA level - R97.20 3 . P ure hypercholesterolemia - E78.00 4 . B MT 40.0-44.9, adult - Z68.41 5 . T estosterone deficiency - E29.1 6 .?Depression screen - Z13.31 Plan: * Treatment: 2. R ising PSA level L AB: PSA,Total (Free>4and<10) (Ordered for 11/20/2025) Notes: will cntinue to monitor, future labs ordered 3. P ure hypercholesterolemia Notes: well controlled, will cpntinue current regiment 4. B MT 40.0-44.9, adult Notes: is trying to lose weight, advised on diet and exercise 5. T estosterone deficiency Notes: repeat one was normal, will continue to monitor 6. D epression screen Notes: negative screen * Procedure Codes: * Follow Up: 6 Months * * Sign off status: Completed true * Provider: Radha Robledo MD Date: 10/23/2024 Generated for Anabelle pandya/Rosalio/Bereitting on: 05:38 PM EST History and Physical Notes * HPI (History of Present Illness) Category Sub-Category Detail Notes Category Not es Symptom(s) patient is a 64 yo male here for annual visit with review of recent labs and follow up of chronic issues Depression Screening PHQ-9 Little inte rest or pleasure in doing things: Not at all Feeling down, depressed, or hopeless: No t [...] way: Not at all Total Score: 0 SDOH Questions SDOH Questions In the past [...] clubbing, cyanosi s, or edema MALE GENITOURINARY: circumcised, no test icular mass, testes descended bilaterally RECTAL EXAM: normal tone, no exte rnal hemorrhoids, no masses palpable, prostate normal, no stool but just had colonoscopy ORAL CAVITY: mucosa moist
[2025-09-09 15:49] VITALS: BP 134/82; PULSE 71; O2SAT 96; BMI 40.9
--- NOTE | 2025-09-09 15:49 | A.OFFVIS_ITS ---
Vital Signs 09/09/25 15:49 Height 5 ft 9.5 in Weight 281 lb 4.957 oz BMI 40.9 BP 134/82 Blood Pressure Location Rt brachial Position Sitting Pulse 71 Pulse Source Pulse Oximeter Pulse Oximetry (%) 96 Oxygen Delivery Method Room Air Intake Visit Reasons: Obesity Intake Note: New patient referred by PCP for Obesity. Parlor Maid Required: No Accompanied by: Self / Same As Patient Allergies No Known Allergies Allergy (Verified 09/09/25 15:50) HPI Comments Details: History of Present Illness The patient is a 64 year old male presenting for an endocrinology consultation regarding weight management. He reports his weight has been at a steady state for the last couple of years, but he has gained approximately 20 pounds over the last 10 years and has always been somewhat overweight. He has tried reducing his food quantity but has not followed any formal diets, seen a manufacturing shift supervisor, or tried any weight loss medications. 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 He denies any personal history of diabetes or thyroid problems. Recent blood work ordered by his primary care provider showed a testosterone level on the lower end of the normal range, which was higher on a subsequent test. The patient denies any family history of thyroid problems. 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 He notes that he and his are health-conscious and do not eat fast food. Medication History - The patient reports no history of trying weight loss medications. Medications - No current medications were discussed. Exercise The patient reports being very active. 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 Diet History The patient reports having tried to reduce the quantity of food he eats but has not followed any formal diet plans. He states that he and his are health- conscious and do not eat fast food. Results - Labs: Recent bloodwork performed by PCP was reviewed. - An initial testosterone level was on the lower end of the normal range, while a repeat test showed a higher level. - Thyroid levels were checked and were normal. [facility] Medical History (Updated 09/09/25 @ 15:52 by Rohan Panda MD) Obesity Sleep apnea treated with continuous positive airway pressure (CPAP) Hyperlipidemia Surgical History H/O colonoscopy Social History Patient Tobacco Use Status: Never used Tobacco Review of Systems Narrative Review of Systems - General: Reports being overweight and desiring weight loss. - Endocrine: Denies history of diabetes or thyroid problems. - Respiratory: Reports sleep apnea and snoring, uses CPAP nightly. - Musculoskeletal: Reports arthritis in his thumbs. - Denies arthritis in hips, easy bruising, or muscle weakness. Physical Exam Exam Exam: Physical Exam - General: Patient appears well. - Neck: No thyromegaly or nodules on palpation. - Respiratory: Lungs clear to auscultation. - Abdomen: Abdomen is soft, non-tender. - Musculoskeletal: Normal strength noted. Absence of Cushingoid features. Absence of acromegalic features. Neck exam reveals nl size thyroid about 15 gms. No thyroid nodules palpable. Heart S1 S2, Reg R/R. No M/R G. Skin exam reveals absence of vitiligo or acanthosis nigricans. Visual exam of foot performed. No ulcerations or open lesions. No inter digit maceration or fissuring. No onychomycosis, no callouses. Sensation intact to monofilament exam. Vibratory sensation is normal with 128 Hz tuning fork. Vital Signs: Last Vital Signs Pulse 71 09/09/25 15:49 BP 134/82 09/09/25 15:49 Pulse Ox 96 09/09/25 15:49 Oxygen Delivery Method Room Air 09/09/25 15:49 BMI result Body Mass Index 40.9 Const Other: Absence of cushingoid features. Thyroid gland is normal size weighs about 15. There are no thyroid nodules Assessment & Plan Assessment & Plan (1) Obesity: Code(s): E66.9 - Obesity, unspecified Category: Medical Plan Assessment and Plan 1. Obesity The patient presents for consultation regarding chronic overweight status despite an active lifestyle. An extensive discussion was held regarding the h ormonal and genetic basis of obesity, including the concept of a metabolic set point that the body defends. The plan includes a referral to a manufacturing shift supervisor, which is often a prerequisite for insurance coverage of weight loss medications. We discussed modern pharmacological treatments, specifically GLP-1 and dual GIP/GLP-1 receptor agonists. Zepbound (tirzepatide) was highlighted as a more effective and better-tolerated option compared to Wegovy (semaglutide). Potential benefits, such as improvement in sleep apnea, and risks, including nausea and the rare risk of pancreatitis, were reviewed. The plan is to submit a prior authorization request for Zepbound to determine insurance coverage once patient is agreeable to going on the drug If denied, lazcano-pay options like Zepbound Direct were discussed. The patient was instructed on the once-weekly subcutaneous injection administration and dose titration schedule. The patient will decide when to proceed and can notify the office via portal or phone. Follow-up is scheduled in 3 months. 2. Obstructive Sleep Apnea The patient is diagnosed and compliant with nightly CPAP use. He was educated that significant weight loss from treatments like Zepbound has an indication for and can potentially resolve sleep apnea. The patient had an opportunity to ask questions regarding treatment plan. The patient expressed understanding and agreement with the above treatment plan. Patient was informed and verbally consented to the use of an ambient scribe for clinic note documentation during this visit. Discussion Notes I had an extensive discussion with the patient about obesity as a chronic, complex disease influenced by genetics and hormones, not simply a matter of diet and exercise. I explained the role of the brain's metabolic set point and how modern medications can help adjust it. We reviewed the available pharmacologic options, focusing on GLP-1 and dual GIP/GLP-1 agonists. I explained that Zepbound (tirzepatide) is generally more effective and better tolerated than Wegovy (semaglutide) due to its dual hormone mechanism. We discussed that these medications are a long-term treatment, and stopping them often results in weight regain. Potential side effects, including nausea, and rare but serious risks like pancreatitis were thoroughly discussed. The patient was agreeable to the plan, which includes a referral to our manufacturing shift supervisor and submitting a prior authorization for Zepbound to ascertain insurance coverage. I provided information on lazcano-pay programs as an alternative. I educated the patient on the once-weekly injection administration, the need for slow dose titration, and potential benefits for his sleep apnea. The patient will research the topic further, discuss with his , and notify me when he is ready to proceed. A follow-up visit is scheduled in 3 months. Patient Instructions - I have placed a referral for you to see a manufacturing shift supervisor. - Please make an appointment with the front end mechanic before you leave. - We discussed starting a medication for weight loss, likely Zepbound. - We will send a request to your insurance to see if it is covered. - If you decide to start, the medication is an easy-to-use injection that you will give yourself once a week. - Nausea is a possible side effect, but it often gets better as your body gets used to the medication. - Losing weight can have many health benefits, including potentially improving or resolving your sleep apnea. - You can contact our office by phone or through the patient portal at any time if you decide you would like to start the medication. - We have scheduled a follow-up appointment for you in about 3 months. - Resources were provided for you to research, including the websites [email or web address] and [email or web address]. Orders: Referrals Nutrition/Dietitian Referral E66.9 - Obesity, unspecified Coding Level of Care Code New Pt Level 4 (25468) Add On Problem Visit Only Diagnoses Obesity E66.9
--- OUTSIDE RECORDS SUMMARY | 2025-09-09 17:40 | XMS_ITS | Patient Health Record ---
Author Organization [facility] Address [address] [place] [address] Care Team Providers Care Weld Fitter Name Role Phone Meena MEDINA, Carlitos Primary Care Provider Rohan Rosenberg [phone] Allergies No Known Allergies Results Component Value Reference Range Notes Pathology Reviewed date:04/11/2025 07:43:56 AM Interpretation: Performing Lab:[facility], [address] [place] [id number] Notes/Report: Reason For Referral No Information Medications Medication SIG (Take, Route, Frequency, Duration) Notes Start Date End Date Status Atorvastatin Calcium 40 MG Tablet 1 tablet Orally Once a day Active Immunizations Vaccine Route Administration Date Status Comme nts Influenza Unknown 07/03/2024 Administered Social History Social History Additional Details Category Social Info Options Details Miscellaneous: Marital status: 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 alcohol Nonsmoker; no sig. alcohol Problems Problem Type SNOMED Code ICD Code Onset Dates Problem Status W/U Status Risk Notes Problem Colon cancer screening ([id number]) Colon cancer screening (V76.51) Active confirmed Vital Signs Temperature 98.4 degrees Fahrenheit 02/20/2025 Blood pressure diastolic 01 mm Hg 02/20/2025 Height 69.5 in 02/20/2025 Blood pressure systolic 001 mm Hg 02/20/2025 Weight 277.1 lbs 02/20/2025 BMI 40.33 kg/m2 02/20/2025 Procedures Procedure Date Ordered Date Performed Result Body Sit e COLONOSCOPY 02/20/2025 N/A Encounters Encounter Location Date Provider Diagnosis [facility] [place] Outpatient [address] [place] [phone] 04/04/2025 Rohan Ambriz [facility] [address] [place] Cheng [address] 02/20/2025 Rohan Ambriz Heme + stool R19.5 [...] Test Test Name Order Date COLONOSCOPY 10/13/2012 Insurance Providers Payer Name Payer Address Payer Phone Subscriber Number Group Number Insured Name Patient Relationship to Insured Coverage Start Date Coverage End Date [employer] [address] [place] [address] [id number] NOVOA Self - patient is the insured Medical (General) History Medical History History ICD Code Denies [place],DM,CVA,Lung disease,renal dise ase Hyperlipidemia Negative screening colonoscopy with me i n 2012 Negative colonoscopy at [facility] in 2017. This was done for the evaluation of an abnormal CT scan of the colon.
--- OUTSIDE RECORDS SUMMARY | 2025-09-09 17:40 | XMS_ITS | Patient Health Record ---
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 Name Role Phone Carlitos Robledo Primary Care Provider [phone] Allergies No Known Allergies Results Component Value Reference Range Notes Liver Panel Reviewed date:02/11/2025 11:50:55 AM Interpretation: Performing Lab:[facility], [address] [place] [phone] Notes/Report: Bilirubin Total 0.7 0.0-1.0 mg/dL Bilirubin Direct 0.2 0.0-0.5 mg/dL Aspartate Amino Transferase 32 5-37 U/L Alanine Aminotransferase 32 0-40 U/L Total Protein 7.2 6.5-8.0 g/dL Albumin Level 4.3 3.5-5.0 g/dL Alkaline Phosphatase 103 39-117 U/L Lipid Panel with Reflex Reviewed date:02/11/2025 01:43:52 PM Interpretation: Performing Lab:[facility], [address] [place] [phone] Notes/Report: Triglycerides 162 <150 mg/dL Desirable Triglyceride: [...] low results in patients with liver disease. Complete Blood Count Auto Di ff Reviewed date:08/15/2025 12:44:52 PM Interpretation: Performing Lab:[facility], [address] [place] [phone] Notes/Report: White Blood Count 7.5 4.8-10.8 X10*3/uL [...] 0.0-0.2 /100WBC Neutrophils Absolute Auto 4.6 2.0-8.3 x10*3/uL Imm Gran Abs Auto 0.02 0.00-0.03 X10*3/uL Lymphocytes Absolute Auto 1.9 1.2-4.9 X10*3/uL Monocytes Absolute Auto 0.8 0.1-1.2 X10*3/uL Eosinophils Absolute Auto 0.3 0.0-0.4 X10*3/uL Basophils Absolute Auto 0.0 0.0-0.2 X10*3/uL NRBC Abs Auto 0.000 0.0-0.012 X10*3/uL Lipid Panel Reviewed date:08/15/2025 05:41:30 PM Interpretation: Performing Lab:[facility], [address] [place] [phone] Notes/Report: Triglycerides 125 <150 mg/dL Desirable Triglyceride: [...] (Free>4and<10) Reviewed date:08/22/2025 02:52:34 PM Interpretation:08-22-2025 Performing Lab:[facility], [address] [place] [phone] Notes/Report: PSA,Total (Free>4and<10) 2.08 0.00-4.00 ng/mL A [...] Free/Total Reviewed date:08/22/2025 08:58:44 AM Interpretation: Performing Lab:[facility], [address] [place] [phone] Notes/Report: Testosterone, Total 913 694-8592 ng/dL Men with clinically significant hypogonadal symptoms and testosterone values repeatedly in the range of the 200-300 ng/dL or less, may benefit from testosterone treatment after adequate risk and benefits counseling. For additional information, please refer to http://education.[employer]/ faq/ TotalTestosteroneLC [id number] (This link is being provided for informational/ educational purposes only.) This test was developed and its analytical performance characteristics have been determined by [employer] [place] [place]. It has not been cleared or approved by the U.S. Food and Drug Administration. This assay has been validated pursuant to the CLIA regulations and is used for clinical purposes. Testosterone, Free 52.9 35.0-155.0 pg/mL This test was developed and its analytical performance characteristics have been determined by [employer] [place] [place]. It has not been cleared or approved by the U.S. Food and Drug Administration. This assay has been validated pursuant to the CLIA regulations and is used for clinical purposes. THIS TEST WAS PERFORMED AT: [employer]/[address] RACHEL LEMA MD,PHD UA Cln[employer]atch+Micro w/rflx Cul t Reviewed date:08/15/2025 12:42:17 PM Interpretation: Performing Lab:[address] [phone] Notes/Report: Urine, Clean Catch Color Urine Yellow Appearance Urine Clear PH 6.5 5.0-9.0 Glucose Urine UA Negative Negative mg/dL Urine Blood Negative Negative Specific [place] - Urine 1.020 1.005-1.025 Urine Protein Negative Neg-Trace mg/dL Urine Ketones Negative Negative mg/dL Nitrite Urine Negative Negative Leukocyte Esterase Urine Negative Negative RBC Urine 0-2 0-2 /HPF WBC Urine 0-5 0-5 /HPF Squamous Epithelial Cell Urine 0-2 0-2 /HPF Bacteria Urine None Seen None Seen Hyaline Casts Urine 0-2 0-2 /LPF TSH reflex Free T4 Reviewed date:06/10/2025 06:54:16 PM Interpretation: Performing Lab:[address] [phone] Notes/Report: TSH reflex Free T4 3.92 0.32-4.0 uIU/mL Testosterone, Free/Total Reviewed date:06/16/2025 02:25:56 PM Interpretation: Performing Lab:[address] [phone] Notes/Report: Testosterone, Total 226 579-6302 ng/dL Men with clinically significant hypogonadal symptoms and testosterone values repeatedly in the range of the 200-300 ng/dL or less, may benefit from testosterone treatment after adequate risk and benefits counseling. For additional information, please refer to http://education.[employer]/ faq/ TotalTestosteroneLC [id number] (This link is being provided for informational/ educational purposes only.) This test was developed and its analytical performance characteristics have been determined by [employer] [place] [place]. It has not been cleared or approved by the U.S. Food and Drug Administration. This assay has been validated pursuant to the CLIA regulations and is used for clinical purposes. Testosterone, Free 32.1 35.0-155.0 pg/mL This test was developed and its analytical performance characteristics have been determined by [employer] [place] [place]. It has not been cleared or approved by the U.S. Food and Drug Administration. This assay has been validated pursuant to the CLIA regulations and is used for clinical purposes. THIS TEST WAS PERFORMED AT: [facility] [facility]/[address] [phone] RACHEL LEMA MD,PHD Ronnie Guo Reviewed date:02/11/2025 11:49:53 AM Interpretation: Performing Lab:[facility], [address] [place] [phone] Notes/Report: Ronnie Guo See Note Specimen held untested for 24 hours; Call to request Chemistry testing. Pathology Reviewed date:04/05/2025 09:19:11 PM Interpretation: Performing Lab:[facility], [address] [place] [phone] Notes/Report: ------ Name: Og Novoa Age/Sex: 64/M : 1960 [facility]#: [id number] Unit#: [id number] Attend Dr: Rohan Nath MD Re04/04/25 Status : [facility] Location: [facility] Disch: ------ SPEC : [id number] RECD : 04/04/25-1555 STATUS: [facility] NUM: [id number] XENA: 04/04/25-[address] [facility] [address]: Rohan Nath MD ENTERED: 04/04/25-15 57 SP TYPE: Surgical OTHR DR: Carlitos Robledo MD ORDERED: HE Stain/3, Gross Micro L4 Diagnosis Cecum, polypectomy: Sessile serrated lesion/polyp; negative for cytologic dysplasia. Clinical History Pre-Op Dx: Other fec al abnormalities, heme positive stool Post-Op Dx: Polyp, diverticulosis, hemorrhoids Microscopic Description Microscopic sections reviewed. Material Received Cecal polyp Gross Description Received in formalin labeled ?cecal polyp? is a thin, flat portion of translucent pink white soft tissue measurin g 0.7 x 0.5 x 0.1 centimeter which is bisected, wrapped in lens paper and entirely submitt ed for microscopic examination, 2 pieces in cassette A. ([facility]) IHC S/NG Disclaimer NOTE: Unless otherwi se stated, all tissue is formalin-fixed and paraffin-embedded. Some or all of the immunohistochemical tests reported herein may have been developed and their performance characteristics determined by [facility]. They have not been cleared or appr nuha by the U.S. Food and Drug Administration (FDA). However, the FDA has determined that such clearance or approval is not necessary. This laboratory is certified under the Clinical Laboratory Improvement Amendments of 1988 (CLIA) as qualified to perform high comp lexity clinical laboratory testing. Copies To: Carlitos Robledo MD [facility] [address] [place] [address] CONTINUED ON NEXT PAGE ------ Name: Og Novoa Justine Age/Sex: 64/M : 1960 Unit#: [id number] Attend Dr: Rohan Nath MD Re04/04/25 Status : [facility] Location: [facility] Disch: ------ SPEC : [id number] RECD : 04/04/25-1555 STATUS: [facility] NUM: [id number] XENA: 04/04/25-[address] [facility] [address]: Rohan Nath MD ENTERED: 04/04/25- 57 SP TYPE: Surgical OTHR DR: Carlitos Robledo MD ORDERED: LAISON Stain/3, Gross Micro L4 Copies To: (Continued) Rohan Nath MD [facility] [address] [place] [address] ------ Signed (signature on file) Gurjit Payne MD 04/05/25 1606 ------ END OF REPORT Ronnie Guo Reviewed date:06/10/2025 04:39:09 PM Interpretation: Performing Lab:[facility], [address] [place] [phone] Notes/Report: Ronnie Guo See Note Specimen held untested for 24 hours; Call to request Chemistry testing. Hold Lav - Possible Hematolo gy Reviewed date:08/15/2025 02:47:19 PM Interpretation: Performing Lab:[facility], [address] [place] [phone] Notes/Report: Hold Lav - Possible Hematology SEE NOTE Specimen will be held untested for 8 hours. Call Hematology if testing is desired. Comprehensive Met. Panel Reviewed date:08/15/2025 05:41:47 PM Interpretation: Performing Lab:[facility], [address] [place] [phone] Notes/Report: Sodium 142 135-145 mmol/L Potassium 4.4 3.3-5.1 mmol/L Chloride 108 96-108 mmol/L Carbon Dioxide 24 22-29 mmol/L Anion Gap 14 12-20 Blood Urea Nitrogen 22 9-16 mg/dL Creatinine 0.95 0.5-1.4 mg/dL Estimated Glomerular Filt Rate > 60 Chronic Kidney Disease: Estimated GFR < 60 mL/min/1.73m2 Severe Kidney Disease: Estimated GFR < 15 mL/min/1.73m2 Glucose Random 100 60-115 mg/dL Calcium 9.4 8.4-10.2 mg/dL Bilirubin Total 0.8 0.0-1.0 mg/dL Aspartate Amino Transferase 32 5-37 U/L Alanine Aminotransferase 27 0-40 U/L Total Protein 7.3 6.5-8.0 g/dL Albumin Level 4.5 3.5-5.0 g/dL Alkaline Phosphatase 109 39-117 U/L Reason For Referral Reason needs urgent Colonos copy Diagnosis 1 Guaiac + stool (R19. 5) Referral Organization Carlitos Robledo MD Referring Provider First Name Carlitos Referring Provider Last Name Meena Referring Provider Speciality Internal M edicine Referred Provider Rohan Nath Referred Provider Specialty Gastroentero logy General Notes Deedee Sanderson 0 02/18/2025 11:21:43 AM referral info faxedKin Annette 02/22/2025 07:34:16 AM >patient is aware of Clementine ortiz Patti A 03/22/2025 11:45:09 AM >OFFICE NOTE RECD Referral Priority Routine Referral Appointment Date 02/20/2025 Reason Obesity testostero ne deficiency Diagnosis 1 Obesity (E66.9) Diagnosis 2 Testosterone deficie ncy (E29.1) Referral Organization Carlitos Robledo MD Referring Provider First Name Carlitos Referring Provider Last Name Meena Referring Provider Speciality Internal edicine Referred Provider Rohan Panda Referred Provider Specialty Endocrinolog y General Notes Deedee Sanderson 0 06/10/2025 10:56:43 AM >labs pendingKin Annette 06/20/2025 02:03:04 PM > info faxed with lab resultsKin Annette 07/05/2025 03:00:23 PM >was told to refaxedKin Annette 07/19/2025 10:27:54 AM > referral info mailed to patient Referral Priority Routine Referral Appointment Date 09/09/2025 Medications Medication SIG (Take, Route, Frequency, Duration) [...] a day for 1 days 02/18/2025 Not-Taking Immunizations Vaccine Route Administration Date Status Comme nts Flu Vaccine IM Intramuscular 06/16/2015 Administered Fluarix Quadrivalent IM Intramuscular 08/15/2017 Administe red Fluarix Quadrivalent IM Intramuscular 05/26/2018 Administe red Fluarix Quadrivalent IM Intramuscular 07/02/2019 Administe red Fluarix Quadrivalent IM Intramuscular 07/14/2020 Administe red Covid Vaccine Unknown 2020 Administered Moderna Covid Vaccine Unknown 01/14/2021 Administered Moderna Fluarix Quadrivalent IM Intramuscular 07/28/2021 Administe red SARS-COV-2 Moderna Unknown 08/20/2021 Administered [facility] Fluarix Quadrivalent IM Intramuscular 07/29/2022 Administe red Fluarix Quadrivalent IM Intramuscular 08/02/2023 Administe red Fluarix Quadrivalent - 150 IM Intramuscular 08/16/2024 Adm inistered Fluarix Quadrivalent - 150 IM Intramuscular 06/10/2025 Adm inistered Social History Tobacco Use: Social [...] Never (0 point) Points 1 Interpretation Negative Problems Problem Type SNOMED Code ICD Code Onset Dates Problem Status W/U Status Risk Notes Problem Foot pain (61806914) Foot pain (729.5) Active confirmed Problem Erectile dysfunction (374487864) Erectile dysfunction (N52.9) Active confirmed Problem Androgen deficiency (43724376) Testosterone deficiency (E29.1) Active confirmed Problem Sinusitis (92655217) Sinusitis (J32.9) Active confirmed Problem Sleep apnea (37304680) Sleep apnea, unspecified (G47.30) Active confirmed Problem 073346938 Erectile dysfunc tion, unspecified erectile dysfunction type (N52.9) Active confirmed Problem Obesity (416865881) Obesity (E66.9) Active confirmed Problem 164754670 Pure hypercholesterolemia (E78.00) Active confirmed Problem 20380762 VENKAT (obstructive sleep apnea) (G47.33) Active confirmed Problem 303162058 BMI 40.0-44.9, a dult (Z68.41) Active confirmed Vital Signs Blood pressure diastolic 70 mm Hg 08/22/2025 Height 69 in 08/22/2025 Blood pressure systolic 132 mm Hg 08/22/2025 Weight 271 lbs 08/22/2025 BMI 40.02 kg/m2 08/22/2025 Encounters Encounter Location Date Provider Diagnosis Carlitos Robledo MD [address] [place] [id number] 02/11/2025 aCrlitos Robledo Pure hypercholestero lemia E78.00 Carlitos Robledo MD [address] [place] [address] Drive [address] [place] [id number] 08/15/2025 Carlitos Robledo Blood tests for rout ine general physical examination Z00.00 ; Pure hypercholesterolemia E78.00 and Testosterone deficiency E29.1 Carlitos Robledo MD [address] [place] [address] Drive [address] [place] [id number] 02/18/2025 Carlitos Robledo Tick bite W57.XXXA ; Pure hypercholesterolemia E78.00 and Guaiac + stool R19.5 Carlitos Robledo MD [address] [place] [address] [address] [place] [id number] 06/10/2025 Carlitos Robledo Pure hypercholestero lemia E78.00 ; Obesity E66.9 ; Erectile dysfunction N52.9 and Encounter for administration of vaccine Z23 Carlitos Robledo MD [address] [place] [id number] 07/08/2025 Carlitos Robledo Testosterone deficie ncy E29.1 and BMI 40.0-44.9, adult Z68.41 Carlitos Robledo MD [address] [place] [id number] 08/22/2025 Carlitos Robledo Rising PSA level R97 .20 ; Adult general medical exam Z00.00 ; Pure hypercholesterolemia E78.00 ; BMI 40.0-44.9, adult Z68.41 ; Testosterone deficiency E29.1 and Depression screen Z13.31 Assessments Encounter Date Diagnosis (ICD Code) Assessment Notes Treatment Notes Treatment Clinical Notes Section Notes 02/11/2025 Pure hypercholesterolemia (ICD-10 - E78.00) 08/15/2025 [address] tests [address] ine general physical examination (ICD-10 - Z00.00) 02/18/2025 Tick bite (ICD-10 - W57.XXXA) patient verbalized understanding of medication and directions for use 02/18/2025 Pure hypercholesterolemia (ICD-10 - E78.00) doing well, will continue current regiment 06/10/2025 Pure hypercholesterolemia (ICD-10 - E78.00) will continue current regiment 06/10/2025 Obesity (ICD-10 - E66.9) 07/08/2025 Testosterone deficie ncy (ICD-10 - E29.1) referral to endocrine for further evaluation/ referral for Endo already in system, waiting for an appt 08/22/2025 Rising PSA level (ICD-10 - R97.20) will cntinue to monitor, future labs ordered 08/22/2025 Adult general medica l exam (ICD-10 - Z00.00) labs reviewed and discussed with patient 08/15/2025 Pure hypercholesterolemia (ICD-10 - E78.00) 02/18/2025 Guaiac + stool (ICD- 10 - R19.5) get urgent colonoscopy with dr nath 06/10/2025 Erectile dysfunction (ICD-10 - N52.9) will continue current regiment 07/08/2025 BMI 40.0-44.9, adult (ICD-10 - Z68.41) is not able to lose weight. 08/22/2025 Pure hypercholesterolemia (ICD-10 - E78.00) well controlled, will cpntinue current regiment 08/15/2025 Testosterone deficie ncy (ICD-10 - E29.1) 06/10/2025 Encounter for administration of vaccine (ICD-10 - Z23) HD flu vaccine administered 08/22/2025 BMI 40.0-44.9, adult (ICD-10 - Z68.41) is trying to lose weight, advised on diet and exercise 08/22/2025 Testosterone deficie ncy (ICD-10 - E29.1) repeat one was normal, will continue to monitor 08/22/2025 Depression screen (ICD-10 - Z13.31) negative screen 06/10/2025 Other refer to endocrinolgy Plan Of Treatment Pending Test Test Name Order Date Electrocardiogram (EKG) 05/12/2017 Electrocardiogram (EKG) 05/26/2018 Electrocardiogram (EKG) 03/19/2014 Electrocardiogram (EKG) 02/20/2016 XR CHEST 2 VIEW PA & LAT 10/25/2016 Comprehensive [place]. Panel Fast Next Appt Details Provider Name:Carlitos Wilson ier, 02/11/2026 07:15:00 AM, [address] [place] [address], Suite [facility], [place], [place], [phone], Provider Name:Carlitos Wilson ier, 02/18/2026 08:45:00 AM, [address] [place] [address], Suite [facility], [place], [phone], Provider Name:Carlitos Wilson ier, 08/19/2026 07:30:00 AM, [address] [place] [address], [place] [address], [place], [place], [phone], Provider Name:Carlitos Wilson ier, 08/26/2026 08:30:00 AM, [address] [place] [address], [address], [phone], Insurance Providers Payer Name Payer Address Payer Phone Subscriber Number Group Number Insured Name Patient Relationship to Insured Coverage Start Date Coverage End Date JUWAN BARAJAS [address] JENN Hinojosa [phone] [id number] NOVOA Self - patient is the insured Medical (General) History Medical History History ICD Code Colonoscopy 12/04/2012 - repe at 10 years; Colonoscopy done 11/05/16 by Ethan Montiel MD - repeat 10 yrs Family HX of malignant neoplasm of diges tive organs esophageal
== END 2025-09-09 16:39 | disposition home or self-care (01) ==
LOC: HO.ENCR 15:39
PROVIDERS: PCP Internal Medicine; Visit Provider Internal Medicine Endocrinology, Diabetes & Metabolism
DX: E66.9 Obesity, unspecified (principal)
CPT/HCPCS: 99204